=== PATIENT | female | born 1945 | race Caucasian/White ===

== ENCOUNTER 2019-04-15 14:24 | Observation (INO) ==
--- NOTE | 2019-04-15 14:52 | Emergency Department Note ---
Entered by Philippe Martínez acting as a scribe for Delfino Aaron DO History of Present Illness General Chief complaint: Flank Pain Stated complaint: RLQ ABD PAIN R/O DIVERTICULITIS VS APPENDICITIS Time Seen by Provider: 04/15/19 14:36 Source: patient History of Present Illness Provider complaint: Abd pain Onset (ago): day(s) 2 Location: abdomen Pain Consistency: + constant Maximum Pain Intensity: 4 Current Pain Intensity: 4 Quality: + burning and + constant Exacerbated By: + none Treatments prior to arrival: none The patient is a 73 year old female with a hx of arthritis, HTN, asthma, and GERD who presents to the Emergency Room with complaints of abdominal pain that began 2 days ago. The patient states that the pain began as a burning pain that was throughout her entire abdomen. The patient states that she was seen by her PCP prior to arrival and had a CT completed at that time. Currently, she notes that the pain has somewhat subsided rating it as a 4/10. The patient denies being on blood thinners. The patient adds that he last consumed food 1 day ago. Home Medications Home Medications Medication Instructions Recorded Confirmed Type Centrum Silver 1 tab PO QAM 07/19/18 04/15/19 History acetaminophen [Tylenol Extra 1,000 mg PO HS 07/19/18 04/15/19 History Strength] albuterol sulfate [ProAir HFA] 2 puff INHALATION Q4H PRN 07/19/18 04/15/19 History calcium-vitamin D3-vitamin K 1 dose PO BID 07/19/18 04/15/19 History [Viactiv] clobetasol 1 applic TOPICAL 2XWK PRN 07/19/18 04/15/19 History fluticasone propion-salmeterol 1 inh INHALATION Q12H 07/19/18 04/15/19 History [Advair Diskus] losartan 50 mg PO QAM 07/19/18 04/15/19 History montelukast 10 mg PO HS 07/19/18 04/15/19 History pravastatin 20 mg PO HS 07/19/18 04/15/19 History ranitidine HCl [Zantac 75] 75 mg PO BID 07/19/18 04/15/19 History cholecalciferol (vitamin D3) 1,000 unit PO QAM 08/13/18 04/15/19 History [Vitamin D3] melatonin 6 mg PO HS 08/13/18 04/15/19 History aspirin 81 mg PO QAM 04/15/19 04/15/19 History ipratropium bromide 2 spray INTRANASAL TID 04/15/19 04/15/19 History sodium chloride [[place] Nasal] 1 spray INTRANASAL BID 04/15/19 04/15/19 History Allergies Allergy/AdvReac Type Severity Reaction Status Date / Time Quinolones Allergy Mild RASH Verified 04/15/19 15:28 epinephrine AdvReac Intermediate Jittery,disoriented,nausea Verified 04/15/19 15:28 and vomiting amoxicillin AdvReac Mild SEVERE Verified 04/15/19 15:28 DIARRAHEA morphine AdvReac Mild NAUSEA/VOMI Verified 04/15/19 15:28 TING Past Med/Surg History Medical History Asthma GERD (gastroesophageal reflux disease) Hearing deficit Hyperlipidemia Hypertension Surgical History H/O bilateral oophorectomy H/O bladder repair surgery BLADDER SLING History of bilateral tubal ligation History of cholecystectomy History of colonoscopy History of dilatation and curettage History of hysterectomy History of tooth extraction History of total hip arthroplasty LEFT Hx of blepharoplasty both eyes Hx of hernia repair Family History Father Family history of diabetes mellitus Brother Family history of diabetes mellitus Sister Family history of diabetes mellitus Father Family hx of colon cancer Social History Preferred Language: Telugu Communication Ability: Effective Beliefs That Will Affect Care: None Current Living Situation: Alone Feels Safe at Home: Yes Smoking Status: Never smoker Second Hand Exposure: No Hx Alcohol Use: No Hx Substance Use: No Review of Systems See HPI for pertinent positives & negatives. and A total of 10 systems reviewed and were otherwise negative Physical Exam Vital Signs Vital Signs - 24 hr 04/15/19 14:27 04/15/19 15:58 Temperature 36.6 C Temperature Source Oral Sepsis Recent Fever Within 48 Hours No Sepsis New/Unexplained Change in Mental Status No Sepsis Action Taken by Nursing No Action Required Pulse Rate 103 H Pulse Rate [Right Finger] 106 H Respiratory Rate 18 18 Respiratory Effort / Characteristics Non-Labored Respiratory Depth Normal Blood Pressure 134/77 Blood Pressure [Left Arm] 140/80 Blood Pressure Mean 96 Blood Pressure Mean [Left Arm] 100 Pulse Oximetry 97 95 Oxygen Delivery Method Room Air CONSTITUTIONAL/VITAL SIGNS: Reviewed / noted above. GENERAL: Non-toxic in appearance. INTEGUMENTARY: Warm, dry, and [place]. HEAD: Normocephalic. EYES: without scleral icterus or trauma. ENT/OROPHARYNX: clear and moist. LYMPHADENOPATHY/NECK: Is supple without lymphadenopathy or meningismus. RESPIRATORY: Lungs clear and equal. CARDIOVASCULAR: Regular rate and rhythm. GI/ABDOMEN: Soft with tenderness RLQ. No organomegaly or pulsatile mass. No rebound or guarding. Normal bowel sounds. EXTREMITIES: Warm and well perfused. BACK: No CVA tenderness. NEUROLOGICAL: Intact without focal deficits. PSYCHIATRIC: normal affect. MUSCULOSKELETAL: Normally developed with good muscle tone. Course 1439: The patient was evaluated in room A11B. A complete history and physical exam was performed. 1450: I discussed the patient's case with Miguel Angel Allison PA-C Surgery. Administered Medications Lactated Ringer's (Lr) 1,000 mls @ 80 mls/hr IV .[id number] ROSEMARY Stop: 05/15/19 15:29 Last Admin: 04/15/19 15:56 Dose: 80 mls/hr Documented by: [id number] Discontinued Medications Sodium Chloride (Nss 1000ml) 500 mls @ 999 mls/hr IV .Q31M ONE Stop: 04/15/19 15:23 Last Infusion: 04/15/19 15:57 Dose: 0 mls/hr Documented by: [id number] Admin: 04/15/19 15:01 Dose: 999 mls/hr Documented by: [id number] Cefoxitin Sodium 2,000 mg/ (Dextrose) 60 mls @ 100 mls/hr IV NOW STA Stop: 04/15/19 15:54 Last Admin: 04/15/19 15:55 Dose: 100 mls/hr Documented by: [id number] Medical Decision Making Differential Diagnosis Differential diagnosis: Etiologies such as appendicitis, diverticulitis, PUD, biliary pathology, UTI, pancreatitis, obstruction, mesenteric ischemia, aortic pathology, infections, inflammatory bowel disease, renal colic, as well as others were entertained. Medical Records Attestation: I reviewed the patient's medical records. Home Medications Current Medication List: was personally reviewed by me Laboratory Data Attestation: I reviewed the patient's lab results. The white blood cell count was 12. Chemistry panel was unremarkable. Imaging Data Radiologist's Impression: Radiology results as stated below per my review and the radiologist's interpretation: CT SCAN OF THE ABDOMEN AND PELVIS WITH IV CONTRAST CLINICAL HISTORY: Right lower quadrant abdominal pain. COMPARISON STUDY: No priors. TECHNIQUE: Following the IV administration of 93 cc of Optiray 320, CT scan of the abdomen and pelvis is performed from the lung bases to the proximal femora. Images are reviewed in the axial, sagittal, and coronal planes. IV contrast was administered without complication. Oral contrast was utilized. A dose lowering technique was utilized adhering to the principles of ALARA. CT DOSE: 633.14 mGy.cm FINDINGS: Lung bases: The heart is normal in size and without pericardial effusion. The lung bases are clear. Liver: The contrast-enhanced liver is enlarged, measuring 19.7 cm in length. The liver is heterogeneous in attenuation. Nodularity of the hepatic surface contour suggests early change of cirrhosis. There is mild central intrahepatic biliary ductal dilatation. The hepatic veins and portal veins are patent. A 3.2 cm cyst is noted in segment IV. Additional subcentimeter hepatic hypodensities also likely represent cysts but are too small for definitive characterization. Gallbladder: Contracted versus surgically absent. Spleen: Normal in size and attenuation. There is a 10 mm peripherally calcified splenic artery aneurysm seen on image #106. Pancreas: Moderately atrophic and grossly unremarkable. Adrenal glands: Unremarkable. Kidneys: The contrast enhanced kidneys demonstrate cortical atrophy and are without hydronephrosis. The kidneys enhance symmetrically. Nonobstructing renal calculi are seen bilaterally. Scattered subcentimeter cortical hypodensities likely represent cysts but are too small for definitive characterization. Abdominal vasculature: The abdominal aorta is normal in course and caliber. Bowel: The appendix is located within a hernia in the right groin, likely representing a femoral hernia. The appendix is distended, thick-walled, and hyperemic as seen on image #3 and 69. The appendix measures up to 10 mm diameter. There is periappendiceal inflammation and fluid, and the appearance is consistent with acute appendicitis. No rest fluid collection is seen to suggest abscess. Mild wall thickening of the cecum is likely related to adjacent appendicitis. There is mild to moderate colonic diverticulosis without CT evidence of acute diverticulitis. No bowel obstruction is seen. Enteric contrast reaches the colon. Peritoneum: There is no intraperitoneal free air or abdominal ascites. There is a small fat-containing umbilical hernia. A 1.6 cm nodule anterior to the liver on image #101 likely represents a splenule. Lymphadenopathy: Mildly enlarged right inguinal lymph nodes are likely on a reactive basis. No additional enlarged lymph nodes are seen in the abdomen or pelvis. Pelvic viscera: Evaluation of the pelvis is degraded by streak artifact from a left hip arthroplasty. The bladder wall appears circumferentially thickened. Mild pericystic stranding is suggested. The uterus is surgically absent. No adnexal lesion is seen. Skeletal structures: The skeletal structures are osteopenic. No lytic or blastic lesions are seen. A letter arthroplasty is in place. Arthritic change is noted in the right hip. IMPRESSION: 1. Findings are consistent with acute appendicitis. The inflamed appendix is contained within a hernia in the right groin, likely representing a femoral hernia. 2. There is no evidence of abscess or perforation. 3. Wall thickening of the cecum is likely related to adjacent appendicitis. 4. The bladder wall appears mildly thickened and hyperemic. Correlate clinically and with urinalysis for evidence of cystitis. 5. The liver is enlarged and heterogeneous. Mild nodularity of the surface contour suggests early change of cirrhosis. Clinical correlation will be required. 6. There is a 10 mm peripherally calcified splenic artery aneurysm. 7. Bilateral nephrolithiasis. 8. Additional findings as above. Electronically signed by: Philippe Perez M.D. 04/15/2019 2:02 PM Blood Pressure Blood Pressure Findings: Elevated blood pressure Blood Pressure Disposition: elevated BP felt to be situational MDM Narrative This is a 73-year-old female who presents to the ED with a chief complaint of right lower quadrant abdominal pain that started on Monday. The patient had an outpatient work-up including CBC, chemistry panel and a CT scan of the abdomen pelvis. The CT scan reveals again an acute appendicitis without abscess or other abnormality. The patient's white blood cell count was 12.0. Her chemistry panel was unremarkable. She reports a history of hypertension, asthma and takes cholesterol medication. She states she is otherwise healthy. Her physical exam revealed tenderness to the right lower quadrant. She is afebrile here. Her heart rate was 103. I spoke with the surgical service via [facility]. They will see the patient for further inpatient evaluation and care. She was given some IV fluids here she last ate yesterday and had some fluid to drink with a CAT scan today. The patient was given IV cefoxitin by the surgical service. Impression & Plan Acute appendicitis The scribe's documentation has been prepared under my direction and personally reviewed by me in its entirety. I confirm that the note above accurately reflects all work, treatment, procedures, and medical decision making performed by me.
[2019-04-15] MEDS ORDERED: SODIUM CHLORIDE 0.9% 1000ML 500 ML IV ONE (14:53)
[2019-04-15] MEDS ORDERED: cefOXitin 2,000 MG in DEXTROSE 5% 50 ML IV STA (15:19)
--- NOTE | 2019-04-15 15:26 | History & Physical Report ---
Date of Service April 15, 2019 Assessment & Plan (1) Appendicitis: Appendicitis within right femoral hernia. Will plan for laparoscopic appendectomy with possible open appendectomy and possible repairs of femoral and umbilical hernias. History of Present Illness Primary Care Provider: Chiquis Joseph, DO 73 y/o female with lower abdominal pain Saturday night, now localized to RLQ. Saw PCP today, had outpatient CT and referred for appendicitis. Some nausea, no fever or chills. Had previous femoral hernia repairs in 1970s. Had glass of juice this morning between 7-8 AM. Allergies Allergy/AdvReac Type Severity Reaction Status Date / Time Quinolones Allergy Mild RASH Verified 04/15/19 15:28 epinephrine AdvReac Intermediate Jittery,disoriented,nausea Verified 04/15/19 15:28 and vomiting amoxicillin AdvReac Mild SEVERE Verified 04/15/19 15:28 DIARRAHEA morphine AdvReac Mild NAUSEA/VOMI Verified 04/15/19 15:28 TING Home Medications Home Medications Medication Instructions Recorded Confirmed Type Centrum Silver 1 tab PO QAM 07/19/18 02/06/19 History acetaminophen [Tylenol Extra 2 tab PO HS 07/19/18 02/06/19 History Strength] albuterol sulfate [ProAir HFA] 2 puff INHALATION QID PRN 07/19/18 02/06/19 History aspirin [Aspir-Low] 81 mg PO QAM 07/19/18 02/06/19 History calcium-vitamin D3-vitamin K 1 dose PO BID 07/19/18 02/06/19 History [Viactiv] clobetasol 1 applic TOPICAL UD PRN 07/19/18 02/06/19 History fluticasone propion-salmeterol 1 inh INHALATION Q12H 07/19/18 02/06/19 History [Advair Diskus] ipratropium bromide 2 spray INTRANASAL TID 07/19/18 02/06/19 History losartan 50 mg PO QAM 07/19/18 02/06/19 History montelukast 10 mg PO HS 07/19/18 02/06/19 History pravastatin 20 mg PO HS 07/19/18 02/06/19 History ranitidine HCl [Zantac 75] 75 mg PO BID 07/19/18 02/06/19 History sodium chloride [[place] Nasal] 1 spray INTRANASAL BID 07/19/18 02/06/19 History cholecalciferol (vitamin D3) 1,000 unit PO QAM 08/13/18 02/06/19 History [Vitamin D3] melatonin 6 mg PO HS 08/13/18 02/06/19 History Past Med/Surg History Medical History Asthma GERD (gastroesophageal reflux disease) Hearing deficit Hyperlipidemia Hypertension Surgical History H/O bilateral oophorectomy H/O bladder repair surgery BLADDER SLING History of bilateral tubal ligation History of cholecystectomy History of colonoscopy History of dilatation and curettage History of hysterectomy History of tooth extraction History of total hip arthroplasty LEFT Hx of blepharoplasty both eyes Hx of hernia repair Family History Father Family history of diabetes mellitus Brother Family history of diabetes mellitus Sister Family history of diabetes mellitus Father Family hx of colon cancer Social History Preferred Language: Samoan Communication Ability: Effective Beliefs That Will Affect Care: None Current Living Situation: Alone Feels Safe at Home: Yes Smoking Status: Never smoker Second Hand Exposure: No Hx Alcohol Use: No Hx Substance Use: No Review of Systems Constitutional: no fever and no chills Respiratory: + cough (chorinc sinus drainage) Cardiovascular: no chest pain and no chest pain with activity Gastrointestinal: + abdominal pain and + nausea; no change in bowel habits Physical Exam Constitutional: WD/WN, vitals as above Respiratory: normal respiratory effort, lungs clear to auscultation Cardiovascular: RRR, no murmur, no edema Gastrointestinal (Abdomen): Inspection/Auscultation: abdomen not distended Percussion/Palpation: + abdomen tender (right femoral hernia) and + hernia (right femoral) Skin: no rashes, warm and dry Results & Data Vital Signs (Past 12 Hours) Vital Signs Temp Pulse Resp BP Pulse Ox 04/15/19 14:27 36.6 C 103 H 18 134/77 97 Diagnostic Findings IMPRESSION: 1. Findings are consistent with acute appendicitis. The inflamed appendix is contained within a hernia in the right groin, likely representing a femoral hernia. 2. There is no evidence of abscess or perforation. 3. Wall thickening of the cecum is likely related to adjacent appendicitis. 4. The bladder wall appears mildly thickened and hyperemic. Correlate clinically and with urinalysis for evidence of cystitis. 5. The liver is enlarged and heterogeneous. Mild nodularity of the surface contour suggests early change of cirrhosis. Clinical correlation will be required. 6. There is a 10 mm peripherally calcified splenic artery aneurysm. 7. Bilateral nephrolithiasis. 8. Additional findings as above. Electronically signed by: Philippe Perez M.D. 04/15/2019 2:02 PM Supervising Physician Co-Signing Physician Notes Patient seen and examined, labs and imaging reviewed, agree with above. 73-year-old female with 48 hours of abdominal pain migrating to the right lower quadrant. She also has a history of a prior right femoral hernia repair. CT done as an outpatient showed an acute appendicitis and a right femoral hernia. White blood cell count elevated, no evidence of perforation. Tender to palpation in the right lower quadrant and right groin. Plan for laparoscopic appendectomy, possible open, possible right inguinal/femoral hernia repair, possible umbilical hernia repair. The risk of the procedure were discussed to include but not limited to bleeding, infection, recurrence of the hernia, damage to surrounding structures, need for future or more extensive surgery, abscess, and the risks of anesthesia We did a long discussion and her goal is to treat the appendicitis primarily. We may primarily repair the femoral hernia or put a piece of biologic mesh and if we find this necessary. If not we will leave it alone and repaired at a future date. Antibiotic preop Plan of care discussed with the patient and her daughter, all questions answered, the patient expressed understanding agrees the plan of care as stated.
[2019-04-15] MEDS ORDERED: LACTATED RINGER'S 1,000 ML IV SCH ×2 (15:30→19:27)
[2019-04-15] MEDS ORDERED: fentaNYL citrate 100 MCG/2 ML VIAL ONE (16:27)
--- NOTE | 2019-04-15 16:42 | Anesthesiology Consultation ---
Date of Service April 15, 2019 Assessment & Plan (1) Encounter for pre-operative examination: Chart Review Chart Review: Acceptable Risk for Surgery Consults Requested none ASA [id number] Proposed Anesthesia Risk / Benefits Reviewed With: PT / POA / Parent / Guardian, Accepts Plan and Informed Consent Obtained History Surgery Operation Date: 04/15/19 15:10 Proposed Procedures p Laparoscopic Appendectomy - Jared Martino DO, FACS s Possible Repair Femoral Hernia - Jared Martino DO, FACS Allergies Allergy/AdvReac Type Severity Reaction Status Date / Time Quinolones Allergy Mild RASH Verified 04/15/19 15:28 epinephrine AdvReac Intermediate Jittery,disoriented,nausea Verified 04/15/19 15:28 and vomiting amoxicillin AdvReac Mild SEVERE Verified 04/15/19 15:28 DIARRAHEA morphine AdvReac Mild NAUSEA/VOMI Verified 04/15/19 15:28 TING Medications Home Medications Medication Instructions Recorded Confirmed Last Taken Centrum Silver 1 tab PO QAM 07/19/18 04/15/19 04/14/19 acetaminophen [Tylenol Extra 1,000 mg PO HS 07/19/18 04/15/19 04/14/19 Strength] albuterol sulfate [ProAir HFA] 2 puff INHALATION Q4H PRN 07/19/18 04/15/19 02/06/19 calcium-vitamin D3-vitamin K 1 dose PO BID 07/19/18 04/15/19 04/14/19 [Viactiv] AM DOSE clobetasol 1 applic TOPICAL 2XWK PRN 07/19/18 04/15/19 02/06/19 fluticasone propion-salmeterol 1 inh INHALATION Q12H 07/19/18 04/15/19 04/15/19 [Advair Diskus] AM DOSE losartan 50 mg PO QAM 07/19/18 04/15/19 04/15/19 montelukast 10 mg PO HS 07/19/18 04/15/19 04/14/19 pravastatin 20 mg PO HS 07/19/18 04/15/19 04/14/19 ranitidine HCl [Zantac 75] 75 mg PO BID 07/19/18 04/15/19 04/14/19 cholecalciferol (vitamin D3) 1,000 unit PO QAM 08/13/18 04/15/1904/14/19 [Vitamin D3] melatonin 6 mg PO HS 08/13/18 04/15/19 02/06/19 aspirin 81 mg PO QAM 04/15/19 04/15/19 04/14/19 ipratropium bromide 2 spray INTRANASAL TID 04/15/19 04/15/19 Unknown sodium chloride [[place] Nasal] 1 spray INTRANASAL BID 04/15/19 04/15/19 04/15/19 AM DOSE Active Medications Generic Name Dose Route Start Last Admin Trade Name Martha PRN Reason Stop Dose Admin Lactated Ringer's 1,000 mls @ 80 mls/hr 04/15/19 15:30 04/15/19 15:56 Lr IV 05/15/19 15:29 80 mls/hr .[id number] ROSEMARY Administration NPO Date Last Intake of Fluids: 04/15/19 Time Last Intake of Fluids: 13:30 Last Intake of Fluids Comment: PO contrast in the ED Date Last Intake of Solids: 04/14/19 Time Last Intake of Solids: 08:00 Past Medical History Medical History Asthma GERD (gastroesophageal reflux disease) Hearing deficit Hyperlipidemia Hypertension Exercise / Class Metabolic Activity II 4-5 Yardwork/Stairs/Walk up hill Past Family History Family History Father Family history of diabetes mellitus Brother Family history of diabetes mellitus Sister Family history of diabetes mellitus Father Family hx of colon cancer Past Surgical History Surgical History H/O bilateral oophorectomy H/O bladder repair surgery BLADDER SLING History of bilateral tubal ligation History of cholecystectomy History of colonoscopy History of dilatation and curettage History of hysterectomy History of tooth extraction History of total hip arthroplasty LEFT Hx of blepharoplasty both eyes Hx of hernia repair Past Anesthesia History No Hx of Anesthesia Complications and No Family Hx of Anesthesia Complications History of PONV No Hx of PONV and No Hx of Motion Sickness Social History Smoking Status: Never smoker Hx Alcohol Use: No Hx Substance Use: No substance use type: does not use Physical Exam Vital Signs Last Vital Signs Temp 98.4 F 04/15/19 16:30 Pulse 105 H 04/15/19 16:30 Resp 20 04/15/19 16:30 BP 137/88 04/15/19 16:30 Pulse Ox 96 04/15/19 16:30 ENMT Mouth: no dentition abnormality Thyromental Distance: > or= 3.5 Finger Breadths Mallampati Class: II Neck normal visual inspection Respiratory normal respiratory effort Auscultation: lungs clear to auscultation bilaterally Cardiovascular Rate/Rhythm: regular rhythm and + tachycardic Testing Electrocardiogram Date: 02/06/19 Normal sinus rhythm, rate 87 bpm Minimal voltage criteria for LVH, may be normal variant Borderline ECG When compared with ECG of 03-MAR-2016 13:19, ST no longer depressed in Inferior leads Nonspecific T wave abnormality no longer evident in Lateral leads Confirmed by Roman Gallegos ([id number]) on 02/08/2019 4:20:56 AM Chest X-Ray Date: 02/06/19 IMPRESSION: 1. No acute cardiopulmonary findings. 2. Left basilar opacity which favors atelectasis.
[2019-04-15] MEDS ORDERED: DEXAMETHASONE SOD INJ 4 MG/ML VIAL ONE (17:19)
[2019-04-15] MEDS ORDERED: SUCCINYLCHOLINE CHLORIDE 20 MG/ML 10 ML VIAL ONE (17:20)
[2019-04-15] MEDS ORDERED: ONDANSETRON INJ 2 MG/ML 2 ML VIAL ONE (17:20)
[2019-04-15] MEDS ORDERED: PROPOFOL IV EMULSION 10 MG/ML 20 ML VIAL IV ONE (17:20)
[2019-04-15] MEDS ORDERED: ROCURONIUM BROMIDE 10 MG/ML 5 ML VIAL ONE (17:20)
[2019-04-15] MEDS ORDERED: LIDOCAINE HCL 2% 2 ML VIAL/AMP(20MG/ML) INFIL ONE (17:20)
[2019-04-15] MEDS ORDERED: PHENYLEPHRINE 100MCG/ML 5ML SYR ONE (17:23)
[2019-04-15] MEDS ORDERED: NEOSTIGMINE METHYLSULFATE 5 MG/5 ML SYR ONE (17:36)
[2019-04-15] MEDS ORDERED: GLYCOPYRROLATE 0.2 MG/ML VIAL ONE (17:36)
[2019-04-15] MEDS ORDERED: ePHEDrine sulfate 50 MG/ML AMP IV PRN (17:55)
[2019-04-15] MEDS ORDERED: fentaNYL citrate 100 MCG/2 ML VIAL IV PRN (17:55)
[2019-04-15] MEDS ORDERED: ONDANSETRON INJ 2 MG/ML 2 ML VIAL IV PRN ×2 (17:55→19:27)
[2019-04-15] MEDS ORDERED: ATROPINE SULFATE 0.1 MG/ML 10ML SYR IV PRN (17:55)
[2019-04-15] MEDS ORDERED: BUPIVACAINE LIPOSOME 1.3% 266 MG/20 ML VIAL ONE (17:59)
[2019-04-15] MEDS ORDERED: BUPIVACAINE 0.5 % 5 MG/1 ML MPF 30ML VIAL INFIL ONE (18:05)
--- NOTE | 2019-04-15 18:32 | Operative Report ---
Post Operative Report Pre & Post Diagnosis Operation Date: 04/15/19 15:10 Pre-Op Diagnosis: Appendicitis within right femoral hernia Post-Op Diagnosis: Appendicitis within incarcerated recurrent right femoral hernia Procedure Operation Date: 04/15/19 15:10 Actual Procedures p Laparoscopic Appendectomy, Repair of recurrent incarcerated Right Femoral Hernia (Not Applicable) - Jared Martino DO, FACS Surgeon Jared Martino DO, FACS Outside Event Sales Specialist Flakito Chavez Estimated Blood Loss 6 Findings Consistent with Post-Op Diagnosis Acute appendicitis with an incarcerated femoral hernia. Began laparoscopically, appendix protruding into femoral hernia, unable to reduce. Appendix was stapled at its base and the harmonic was used to divide the mesoappendix. Attempted again to reduce laparoscopically, and the appendix tore this was placed in Endo Catch bag and removed the umbilical port. Then performed for inguinal right groin incision and the incarcerated femoral hernia sac was identified. This was opened and the remainder of the appendix was removed. High ligation of the hernia sac was performed. The femoral defect was then closed with interrupted simple 0 PDS sutures. Grecia's fascia was closed with running 2-0 Vicryl suture. Apolinar drain was left in the incision was closed with teressa. Reentered laparoscopically and there is good hemostasis in the right lower quadrant. The femoral defect was closed. Exparel injected in right groin. Specimens Appendix Hernia sac Drains Apolinar and right groin incision Anesthesia Type General Complications none Disposition Accompanied Patient To Recovery: No Disposition: Recovery Room Indications 73-year-old female presented to the emergency department with several days of right lower quadrant abdominal pain. She had a history of a prior right femoral hernia repair. She had a CT scan performed as an outpatient that showed appendicitis with an incarcerated right femoral hernia. Plan for laparoscopic appendectomy, possible open, possible right femoral hernia repair, possible umbilical hernia repair. The risks of the procedure were discussed, all questions were answered, and the patient agreed to proceed with surgery as planned. Description of Procedure The patient was properly identified, consented, and taken to the operating room where she was placed in the supine position. General endotracheal anesthesia was induced. SCDs and a safety belt were placed. Preoperative antibiotics were administered. A Jimenez catheter was placed. The patient's abdomen was prepped and draped in the standard sterile fashion. Surgical timeout was performed and all parties were in agreement that this was the correct patient and procedure to be performed and we continued as planned. A curvilinear infraumbilical incision was made with electrocautery and deepened down to the fascia with blunt dissection. The base of the umbilicus was grasped with a Mal and elevated towards the ceiling. An incision was made in the midline fascia with a knife and entry into the peritoneum was confirmed. Stay suture of 0 Vicryl was placed and a Dior trocar was inserted. The abdomen was insufflated with carbon dioxide which the patient tolerated without incident. The laparoscope was inserted and no damage from initial trocar placement was noted. The remainder the abdomen was inspected and there is clearly the appendix herniating through right femoral defect. No other gross abnormalities were noted within the 4 quadrants the abdomen. 5 mm ports were then placed in the left lower quadrant with care not to damage the epigastric vessels, and in the suprapubic midline with care not to damage the bladder. The patient was placed in Trendelenburg position and rotated towards the left. The small bowel was swept away from the right lower quadrant. We attempted to reduce the appendix but were unsuccessful. The cecum was grasped with an atraumatic grasper. There was no fluid in the pelvis. A window was created between the base of the appendix and the mesoappendix. A mccain loaded endoscopic stapler was then used to divide the appendix at its base. The harmonic scalpel was then used to divide the mesoappendix. Hemostasis was good. I again attempted to reduce the appendix from the hernia at this point the appendix and mesoappendix tore. The proximal appendix was placed in an Endo Catch bag and removed through the umbilical port site. Incision was then made in the infra inguinal right groin. This was dissected along the inguinal ligament we were able to palpate hernia sac. The hernia sac was opened and the remainder of the appendix was identified and removed. This was passed off the table as specimen. There were no other intra-abdominal contents within the hernia sac. Then twisted the hernia sac and a high ligation was performed with a 2-0 Vicryl suture. The femoral defect was then closed with interrupted simple 0 PDS sutures x3. The wound was irrigated and hemostasis confirmed. Grecia's fascia was then closed with a running 2-0 Vicryl suture. A [place] drain was placed in the incision and sewn into place with a 3-0 nylon suture. Skin was then closed with interrupted 3 oh deep dermal sutures followed by teressa. At this point we reentered laparoscopically and the femoral defect was closed. the right lower quadrant and pelvis was irrigated and hemostasis was found to be good. 5 mm trochars were removed under direct visualization and the abdomen was allowed to collapse. The umbilical port site fascia was closed with 0 Vicryl suture. The wound was irrigated, and the skin of all ports was closed with teressa. Sterile dressings were placed over the wounds. The patient was extubated in the operating room and taken to the PACU where she recovered without apparent incident. All sponge, instrument and needle counts were correct at the conclusion of the procedure. The patient tolerated the procedure well. The physician's certified nursing assistant was present and scrubbed for the entire to the case. He was critical in positioning the patient, prepping and draping, retraction and exposure, driving the laparoscope, removal of the appendix, and repair of the femoral hernia, closure the incisions, and placement of the dressings. I attest to the content of the Intraoperative Record and any orders documented therein. Any exceptions are noted below.
--- NOTE | 2019-04-15 19:06 | Anesthesiology Progress Note ---
Date of Service April 15, 2019 Anesthesia Post Procedure Vital Signs Vital Signs: Temp Pulse Pulse Pulse Resp BP BP 04/15/19 19:00 84 21 143/72 H 04/15/19 18:50 81 16 140/75 04/15/19 18:40 86 16 139/70 04/15/19 18:31 99.5 F 83 21 131/72 04/15/19 16:30 98.4 F 105 H 20 137/88 04/15/19 15:58 106 H 18 140/80 04/15/19 14:27 97.9 F 103 H 18 134/77 Pulse Ox 04/15/19 19:00 97 04/15/19 18:50 100 04/15/19 18:40 100 04/15/19 18:31 100 04/15/19 16:30 96 04/15/19 15:58 95 04/15/19 14:27 97 Pain Intensity Abdomen: Pain Intensity: 0 Transfer of Care Handoff Completed per policy Notes Mental Status: alert / awake / arousable and participated in evaluation Patient Amnestic to Procedure: Yes Nausea / Vomiting: adequately controlled Pain: adequately controlled Airway Patency, RR, SpO2: stable & adequate BP & HR: stable & adequate Hydration State: stable & adequate Anesthetic Complications: no major complications apparent and Pt Satisfied with anesthetic care
[2019-04-15] MEDS ORDERED: MoRPHine SULFATE 2 MG/ML CARP IV PRN (19:27)
[2019-04-15] MEDS ORDERED: MoRPHine SULFATE 4 MG/ML 1 ML CARP\\VIAL IV PRN (19:27)
[2019-04-15] MEDS ORDERED: ALBUTEROL HFA 8 GM INHALER INH PRN (19:45)
[2019-04-15] MEDS ORDERED: ACETAMINOPHEN 1,000 MG/100 ML VIAL IV PRN (20:45)
[2019-04-15] MEDS ORDERED: KETOROLAC TROMETHAMINE 15 MG/ML VIAL IV PRN (20:46)
[2019-04-15] MEDS: MONTELUKAST SODIUM 10 MG TABLET PO SCH (21:03)
[2019-04-15] MEDS: cefOXitin 2,000 MG in DEXTROSE 5% 50 ML IV SCH (21:03)
[2019-04-15] MEDS: SODIUM CHLORIDE 0.65% NA SOLN 45 ML (OCEAN) NAE SCH (21:03)
[2019-04-15] MEDS: FLUTICASONE/SALMETEROL 250/50 (ADVAIR) 14 PUFF/1 INHALER INH SCH (21:04)
[2019-04-16] MEDS: cefOXitin 2,000 MG in DEXTROSE 5% 50 ML IV SCH ×3 (03:08→16:15)
--- NOTE | 2019-04-16 08:15 | Anesthesiology Progress Note ---
Date of Service April 16, 2019 Anesthesia Post Procedure Vital Signs Vital Signs: Temp Pulse Pulse Pulse Resp BP BP 04/16/19 07:25 36.9 C 68 17 130/84 04/16/19 04:24 36.8 C 74 16 123/68 04/15/19 22:46 36.7 C 97 H 18 118/67 04/15/19 21:32 37.2 C 96 H 18 124/72 04/15/19 20:35 37.2 C 94 H 18 127/74 04/15/19 19:57 37.1 C 82 20 131/74 04/15/19 19:30 37.1 C 85 16 127/73 04/15/19 19:15 84 17 132/76 04/15/19 19:10 37.0 C 82 16 135/72 04/15/19 19:00 84 21 143/72 H 04/15/19 18:50 81 16 140/75 04/15/19 18:40 86 16 139/70 04/15/19 18:31 37.5 C 83 21 131/72 04/15/19 16:30 36.9 C 105 H 20 137/88 04/15/19 15:58 106 H 18 140/80 04/15/19 14:27 36.6 C 103 H 18 134/77 Pulse Ox 04/16/19 07:25 93 04/16/19 04:24 95 04/15/19 22:46 92 04/15/19 21:32 94 04/15/19 20:35 94 04/15/19 19:57 95 04/15/19 19:30 95 04/15/19 19:15 97 04/15/19 19:10 99 04/15/19 19:00 97 04/15/19 18:50 100 04/15/19 18:40 100 04/15/19 18:31 100 04/15/19 16:30 96 04/15/19 15:58 95 04/15/19 14:27 97 Pain Intensity Abdomen: Pain Intensity: 3 Notes Mental Status: alert / awake / arousable and participated in evaluation Patient Amnestic to Procedure: Yes Nausea / Vomiting: adequately controlled Pain: adequately controlled Airway Patency, RR, SpO2: stable & adequate BP & HR: stable & adequate Hydration State: stable & adequate Anesthetic Complications: no major complications apparent and Pt Satisfied with anesthetic care
[2019-04-16 09:02] LABS: Basophils # (auto) 0.01 K/uL (0-0.2); Basophils % (auto) 0.1 %; Hematocrit (blood only) 37.6 % (37-47); Hemoglobin 12.4 g/dL (12.0-16.0); Immature Granulocytes # (auto) 0.02 K/uL (0.00-0.02); Immature Granulocytes % (auto) 0.2 %; Lymphocytes # (auto) 0.76 K/uL (1.2-3.4); Lymphocytes % (auto) 6.4 %; Mean Corpuscular Volume 96.9 fL (80-100); Mean Platelet Volume 9.7 fL (7.4-10.4); Monocytes # (auto) 0.78 K/uL (0.11-0.59); Monocytes % (auto) 6.6 %; Neutrophils # (auto) 10.25 K/uL (1.4-6.5); Neutrophils % (auto) 86.7 %; Platelet Count 251 K/uL (130-400); RDW Coefficient of Variation 14.3 % (11.5-14.5); RDW Standard Deviation 50.7 fL (36.4-46.3); Red Blood Count 3.88 M/uL (4.2-5.4); White Blood Count 11.82 K/uL (4.8-10.8)
[2019-04-16] MEDS: FLUTICASONE/SALMETEROL 250/50 (ADVAIR) 14 PUFF/1 INHALER INH SCH ×2 (09:02→20:46)
[2019-04-16] MEDS: ASPIRIN 81 MG ECTAB PO SCH (09:02)
[2019-04-16] MEDS: LOSARTAN POTASSIUM 50 MG TAB PO SCH (09:03)
[2019-04-16] MEDS: SODIUM CHLORIDE 0.65% NA SOLN 45 ML (OCEAN) NAE SCH ×2 (09:04→20:46)
--- NOTE | 2019-04-16 09:39 | Surgery Progress Note ---
Date of Service April 16, 2019 Assessment & Plan (1) Acute appendicitis: POD 1 lap appy, femoral hernia repair advance diet ambulate Supervising Physician Co-Signing Physician Notes Patient S&E, agree with above. POD#1 lap appy and open incarcerated femoral hernia repair. Doing well, tolerated liquids. Exam benign. Advance diet, ambulate, likely d/c tomorrow. Subjective no complaints, minimal pain Physical Exam Gastrointestinal (Abdomen): Inspection/Auscultation: + abdominal surgical incision (minimal veronica drainage) Percussion/Palpation: abdomen soft Results & Data Vital Signs (Past 12 Hours) Vital Signs Temp Pulse Resp BP Pulse Ox 04/16/19 07:25 36.9 C 68 17 130/84 93 04/16/19 04:24 36.8 C 74 16 123/68 95 04/15/19 22:46 36.7 C 97 H 18 118/67 92 (1) Acute appendicitis Acute appendicitis type: with localized peritonitis Appendicitis abscess presence: without abscess Appendicitis gangrene presence: without gangrene Appendicitis perforation presence: without perforation Qualified Code(s): K35.30 - Acute appendicitis with localized peritonitis, without perforation or gangrene
[2019-04-16 09:54] LABS: BUN Creatinine Ratio 10.4 (10-20); Blood Urea Nitrogen 9 mg/dl (7-18); Calcium 8.2 mg/dl (8.5-10.1); Carbon Dioxide 27 mmol/L (21-32); Chloride 107 mmol/L (98-107); Est GFR (African American) 77.7; Glucose 117 mg/dl (70-99); Potassium 3.8 mmol/L (3.5-5.1); Sodium 140 mmol/L (136-145)
[2019-04-16] MEDS: MONTELUKAST SODIUM 10 MG TABLET PO SCH (20:46)
[2019-04-17] MEDS: ACETAMINOPHEN 325 MG TAB PO PRN ×2 (04:23→12:32)
[2019-04-17] MEDS ORDERED: TRAMADOL HCL 50 MG TABLET PO PRN (07:07)
[2019-04-17] MEDS: FLUTICASONE/SALMETEROL 250/50 (ADVAIR) 14 PUFF/1 INHALER INH SCH (09:32)
[2019-04-17] MEDS: SODIUM CHLORIDE 0.65% NA SOLN 45 ML (OCEAN) NAE SCH (09:32)
[2019-04-17] MEDS: ASPIRIN 81 MG ECTAB PO SCH (09:32)
[2019-04-17] MEDS: LOSARTAN POTASSIUM 50 MG TAB PO SCH (09:32)
--- NOTE | 2019-04-17 10:23 | Surgery Progress Note ---
Date of Service April 17, 2019 Assessment & Plan (1) Appendicitis: POD#2, doing well d/c to home follow up early next week for veronica removal activity restrictions and wound care instructions given return precautions given Present on Admission?: Yes (2) Incarcerated femoral hernia: Subjective POD#2 lap appendectomy and femoral hernia repair. Doing well, pain controlled with tylenol, tolerated reg diet this morning. Ambulating. Physical Exam Constitutional: WD/WN, vitals as above Gastrointestinal (Abdomen): normal bowel sounds, soft, nontender, no hepatosplenomegaly incisions with dressings in place, c/d/i Results & Data Vital Signs (Past 12 Hours) Vital Signs Temp Pulse Pulse Resp BP Pulse Ox 04/17/19 07:35 36.6 C 76 18 124/80 98 04/16/19 23:27 36.6 C 87 14 121/72 94
--- NOTE | 2019-04-22 10:03 | Discharge Summary ---
Date of Service April 22, 2019 Admission HPI Per Admitting Provider 73 y/o female with lower abdominal pain day night, now localized to RLQ. Saw PCP today, had outpatient CT and referred for appendicitis. Some nausea, no fever or chills. Had previous femoral hernia repairs in 1970s. Had glass of juice this morning between 7-8 AM. Principal Diagnosis 1. Acute appendicitis 2. Right femoral hernia Discharge Data Allergies Allergy/AdvReac Type Severity Reaction Status Date / Time Quinolones Allergy Mild RASH Verified 04/15/19 15:28 epinephrine AdvReac Intermediate Jittery,disoriented,nausea Verified 04/15/19 15:28 and vomiting amoxicillin AdvReac Mild SEVERE Verified 04/15/19 15:28 DIARRAHEA morphine AdvReac Mild NAUSEA/VOMI Verified 04/15/19 15:28 TING Consultations 04/15/19 15:54 ED Decision to Admit Stat Procedures Performed Operation Date: 04/15/19 15:10 Actual Procedures p Laparoscopic Appendectomy,(Not Applicable) - Jared Martino DO, FACS s Repair of Incarcerated Right Femoral Hernia (Not Applicable) - Jared Martino DO, FACS Hospital Course (1) Acute appendicitis: 73 y/o female had outpatient CT for RLQ pain for several days. She had acute appendicitis which was incarcerated in right femoral hernia. She was taken to the OR for laparoscopy, the base of the appendix was stapled but we were not able to deliver it out of the hernia. A groin incision was made and the appendix removed and femoral hernia repaired. She was transferred to the surgical floor f or postoperative care. She was able to slowly increase activity and by day two was more mobile, was tolerating diet and oral analgesics. [place] drain was removed from the groin incision. She was stable for discharge. Total Time Total Time Spent Total Time Spent (In Minutes): 15 Discharge Plan Discharge Items Patient Disposition: Home - Self-Care Reason For Visit: APPENDICITIS Discharge Diagnosis: appendectomy, femoral hernia repair Discharge Goals: Decrease discomfort Activity: Per 'Additional Instructions' section Lifting: No more than 10 pounds Bathing Comment: ok to shower Non-emergency contact: Surgeon Call non-emergency contact if: you have any medication questions, your pain is not controlled, you have a fever, your temperature is above 101.5, your wound has increased redness and your wound has increased drainage Follow-up/Referrals: Jared Martino DO, FACS [Physician] - (Call to make an appt in 7-10 days) Chiquis Joseph DO [Primary Care Provider] - Diet: Regular Addtl Provider Instructions: Prescriptions: New tramadol [Ultram] 50 mg tablet 50 - 100 mg PO Q4H PRN (Reason: pain) Qty: 15 RF: 0 Continued losartan 50 mg Tablet 50 mg PO QAM RF: 0 fluticasone propion-salmeterol [Advair Diskus] 250-50 mcg/dose Blister With Device 1 inh INHALATION Q12H RF: 0 acetaminophen [Tylenol Extra Strength] 500 mg Tablet 1,000 mg PO HS RF: 0 ranitidine HCl [Zantac 75] 75 mg Tablet 75 mg PO BID RF: 0 montelukast 10 mg Tablet 10 mg PO HS RF: 0 pravastatin 20 mg Tablet 20 mg PO HS RF: 0 clobetasol 0.05 % Ointment 1 applic TOPICAL 2XWK PRN (Reason: Skin Irritation) RF: 0 albuterol sulfate [ProAir HFA] 90 mcg/actuation Hfa Aerosol Inhaler 2 puff INHALATION Q4H PRN (Reason: Cough or Wheezing) RF: 0 Centrum Silver 0.4-300-250 mg-mcg-mcg Tablet 1 tab PO QAM RF: 0 calcium-vitamin D3-vitamin K [Viactiv] 500-500-40 mg-unit-mcg Tablet,Chewable 1 dose PO BID RF: 0 cholecalciferol (vitamin D3) [Vitamin D3] 1,000 unit Tablet 1,000 unit PO QAM RF: 0 melatonin 3 mg Tablet 6 mg PO HS RF: 0 aspirin 81 mg Tablet,Chewable 81 mg PO QAM RF: 0 ipratropium bromide 0.03 % spray,non-aerosol 2 spray intranasal TID RF: 0 sodium chloride [[place] Nasal] 0.65 % Aerosol,[place] 1 spray INTRANASAL BID RF: 0 Stand-Alone Forms: [facility] Discharge Orders: Discharge Order (Routine); Ordered 04/17/19 Ordered By: Jared Martino Admission Data Admit Date/Time: 04/15/19 18:27 Attending Provider: Jared Martino Admit Provider: Jared Martino Primary Care Provider: Chiquis Joseph Other Providers: Jared Martino Service: Surgical Services Other Interventions: Discharge Summary Assessment (RN) Last Done: 04/17/19 12:14 DC Date/Time DO NOT enter until pt leaves facility: 04/17/19 16:35
== END 2019-04-17 16:35 | disposition home or self-care (01) ==
LOC: ED 14:24 → 3W 14:24
DX: Z79.899 Other long term (current) drug therapy; Z88.5 Allergy status to narcotic agent; J45.909 Unspecified asthma, uncomplicated; E78.5 Hyperlipidemia, unspecified; I10 Essential (primary) hypertension; K21.9 Gastro-esophageal reflux disease without esophagitis; K35.80 Unspecified acute appendicitis; K41.31 Unilateral femoral hernia, with obstruction, without gangrene, recurrent; Z79.82 Long term (current) use of aspirin; Z88.1 Allergy status to other antibiotic agents

== ENCOUNTER 2023-02-10 08:05 | Inpatient (IN) ==
--- NOTE | 2023-02-10 08:08 | Emergency Department Note ---
Impression & Plan Pancreatitis, Abdominal pain, Nausea ED Provider Note NAME: TIM AWAD AGE: 77 SEX: F : 1945 ARRIVES VIA: Ambulance INFORMANT: Patient, ED PROVIDER(S): Pino Avila MD CHIEF COMPLAINT: Abdominal pain MEDICAL DECISION MAKING: Patient presents due to concern for epigastric pain. IV was established blood work was obtained patient was ordered IV fluids and antiemetics. CT of the abdomen pelvis ordered. The patient did receive IV Zofran. Blood work shows a normal white count hemoglobin and platelet count. The patient's kidney function is unremarkable with normal electrolytes. LFTs and lipase normal. CT of the abdomen pelvis that showed concern for pancreatitis but without any obvious abscess. Likely reactive adjacent to the duodenum although could also be associated duodenitis. Given the patient's pancreatitis I did speak with the on-call hospitalist service YARELIS Bates and the patient was admitted by Dr. Odonnell Prior /Outside records reviewed: I did review an EGD completed by Dr. Ji in March 2022 which showed the patient had normal esophagus and stomach as well as duodenum. She was recommended to continue pantoprazole. Differential diagnosis: Appendicitis, ovarian cyst, ovarian torsion, ectopic , TOA, PID, infections, diverticulitis, UTI, obstruction, mesenteric ischemia, aortic pathology, inflammatory bowel disease, renal colic, PUD, pancreatitis, biliary pathology, hernia, volvulus, constipation, as well as other pathologies. Diagnostics, as interpreted by me: ECG: Normal sinus rhythm, rate of 97, normal intervals, normal axis no ST elevations. Cardiac monitoring: An order was placed for continuous cardiac monitoring. The monitor shows a rate of 88 with sinus rhythm. Patient was placed on pulse oximetry Medical decision rules: none Imaging studies: See below HPI: Patient presents due to concern for abdominal pain. Patient states that she initially began having abdominal pain that she describes as epigastric but a 3 beginning yesterday evening with decreased appetite. The patient did drink half a cup of coffee and some toast this morning as she went to her car to go to [facility] treatment as the patient has been receiving amikacin for non-TB Mycobacterium the patient did develop worsening discomfort that was sharp in nature in the epigastrium. Patient states that this is since improved. The patient does have nausea. The patient did not take any for pain prior to arrival. Nothing was given by EMS. Patient denies any diarrhea. The patient did have a recent bowel movement nonbloody. The patient denies any falls or trauma. Patient has been getting the amikacin Monday beginning at the end of December. The patient states that she has had a prior appendectomy cholecystectomy as well as hysterectomy. The patient did take some of her morning medications but not all of them. PAST MEDICAL HISTORY: See Below PAST SURGICAL HISTORY: See Below SOCIAL HISTORY: See Below HOME MEDICATIONS: See Below ALLERGIES: See Below VITALS: See Below PHYSICAL EXAMINATION: GENERAL: NAD, non-toxic. Hard of hearing, wearing glasses. EYE EXAM: Normal conjunctiva. PERRL, no anisocoria and EOM's grossly intact w/o pain. NECK: Supple, no nuchal rigidity, no adenopathy, non-tender. No signs of meningismus. FROM of the neck with good chin to chest and neck extension. No stridor. LUNGS: Clear to auscultation. Normal chest wall mechanics. HEART: NSR, no MRG. ABDOMEN: Abdomen soft, epigastric pain, no lower abdominal pain, no right upper quadrant left upper quadrant pain, no masses, no rebound or guarding. BACK: No CVA TTP. SKIN: No rashes and no bruising. UPPER EXTREMITIES: Upper extremities are grossly normal. LOWER EXTREMITIES: Grossly normal, no edema. NEURO EXAM: A&O x3, cranial nerves II-XII grossly intact, normal speech, moves all 4 extremities. Past Med/Surg History Medical History Asthma HAS NOT USED RESCUE INHALER RECENTLY Fungal infection of lung GERD (gastroesophageal reflux disease) Hearing deficit History of depression Hyperlipidemia Hypertension Surgical History H/O bilateral oophorectomy H/O bladder repair surgery BLADDER SLING History of bilateral tubal ligation History of bronchoscopy History of cholecystectomy History of colonoscopy History of dilatation and curettage History of esophagogastroduodenoscopy (EGD) History of hysterectomy History of tooth extraction History of total hip arthroplasty LEFT Hx of blepharoplasty BILAT. Hx of hernia repair S/P appendectomy (04/15/19) Laparoscopic Appendectomy, Repair of recurrent incarcerated Right Femoral Hernia 04/15/19 Dr. Martino S/P cataract surgery RT/LEFT Family History Father Family history of diabetes mellitus Colorectal cancer Hypertension Brother Family history of diabetes mellitus Heart disease Sister Family history of diabetes mellitus Hypertension Father Family hx of colon cancer Heart disease Cancer Other No family history of adverse response to anesthesia Social History Smoking Status: Never smoker Second Hand Exposure: No; Do You Dip or Chew Tobacco: No; Hx Alcohol Use: No Hx Substance Use: No Preferred Language: Luxembourgish Communication Ability: Effective Manager Income Tax Required: No Beliefs That Will Affect Care: None marital status: / Current Living Situation: Alone Feels Safe at Home: Yes Assistive Devices: Glasses and Hearing Aid - Bilateral Allergies Allergies Allergy/AdvReac Type Severity Reaction Status Date / Time Quinolones Allergy Mild RASH Verified 02/10/23 11:18 epinephrine AdvReac Intermediate Jittery,disoriented,nausea Verified 02/10/23 11:18 and vomiting amoxicillin AdvReac Mild Diarrhea Verified 02/10/23 11:18 morphine AdvReac Mild NAUSEA/VOMI Verified 02/10/23 11:18 TING Home Meds Home Medications Medication Instructions Recorded Confirmed acetaminophen 500 mg tablet 1,000 mg PO HS 07/19/18 02/10/23 (Tylenol Extra Strength) albuterol sulfate 90 mcg/actuation 2 puff inhalation Q4H PRN Cough or 07/19/18 02/10/23 aerosol inhaler (ProAir HFA) Wheezing clobetasol 0.05 % topical ointment 1 applic topical 2XWK PRN Skin 07/19/18 02/10/23 Irritation fluticasone 250 mcg-salmeterol 50 1 inh inhalation Q12H 07/19/18 02/10/23 mcg/dose blistr powdr for inhalation (Advair Diskus) losartan 50 mg tablet 50 mg PO QAM 07/19/18 02/10/23 montelukast 10 mg tablet 10 mg PO HS 07/19/18 02/10/23 [id number]-yzl-vrdvv acid 0.4 1 tab PO QAM 07/19/18 02/10/23 mg-lycopene 300 mcg-lutein 250 mcg tablet (Centrum Silver) pravastatin 20 mg tablet 20 mg PO HS 07/19/18 02/10/23 cholecalciferol (vitamin D3) 25 1,000 unit PO QAM 08/13/18 02/10/23 mcg (1,000 unit) tablet (Vitamin D3) melatonin 3 mg tablet 6 mg PO HS 08/13/18 02/10/23 aspirin 81 mg chewable tablet 81 mg PO QAM 04/15/19 02/10/23 sodium chloride 0.65 % nasal spray 1 spray intranasal BID 04/15/19 02/10/23 aerosol ([place] Nasal) Bifidobacterium infantis 4 mg 4 mg PO QAM 03/30/22 02/10/23 capsule (Align) calcium-vitamin D3-vitamin K 500 1 tab PO DAILY 03/30/22 02/10/23 mg-100 unit-40 mcg chewable tablet metoprolol succinate 25 mg 25 mg PO BID 03/30/22 02/10/23 tablet,extended release 24 hr pantoprazole 20 mg tablet,delayed 40 mg PO QAM 03/30/22 02/10/23 release polyethylene glycol 3350 17 gram 17 g PO QPM 03/30/22 02/10/23 oral powder packet (Miralax) furosemide 40 mg tablet 40 mg PO DAILY 01/20/23 02/10/23 guaifenesin 600 mg tablet, 600 mg PO BID 01/20/23 02/10/23 extended release 12 hr mirtazapine 15 mg tablet 15 mg PO DAILY insomnia 01/20/23 02/10/23 spironolactone 25 mg tablet 12.5 mg PO DAILY 01/20/23 02/10/23 Results & Data (ED) Vital Signs Vital Signs - 24 hr 02/10/23 08:07 02/10/23 08:02/10/23 09:00 Temperature 36.6 C Temperature Source Oral Pulse Rate 93 H 97 H Pulse Rate [Apical] 90 Pulse Rhythm Regular Pulse Rhythm [Apical] Regular Pulse Strength Normal Pulse Strength [Apical] Normal Respiratory Rate 22 20 Respiratory Effort / Characteristics Non-Labored Spontaneous Non-Labored Spontaneous Respiratory Depth Normal Normal Respiratory Pattern Regular Regular Blood Pressure 127/89 Blood Pressure [Left Arm] 130/86 Blood Pressure Mean 101 Blood Pressure Mean [Left Arm] 100 Blood Pressure Position Semi-fowlers Blood Pressure Position [Left Arm] Pulse Oximetry 97 98 Oxygen Delivery Method Room Air Room Air Sepsis Recent Fever Within 48 Hours No Sepsis New/Unexplained Change in Mental Status No Sepsis Action Taken by Nursing No Action Required 02/10/23 10:05 02/10/23 13:17 Temperature Temperature Source Pulse Rate 107 H Pulse Rate [Apical] 93 H Pulse Rhythm Pulse Rhythm [Apical] Regular Pulse Strength Pulse Strength [Apical] Normal Respiratory Rate 20 Respiratory Effort / Characteristics Non-Labored Spontaneous Respiratory Depth Normal Respiratory Pattern Regular Blood Pressure Blood Pressure [Left Arm] 136/93 Blood Pressure Mean Blood Pressure Mean [Left Arm] 107 Blood Pressure Position Blood Pressure Position [Left Arm] Semi-fowlers Pulse Oximetry 96 Oxygen Delivery Method Room Air Sepsis Recent Fever Within 48 Hours Sepsis New/Unexplained Change in Mental Status Sepsis Action Taken by Snf Medications Current Medication List: was personally reviewed by me Laboratory Data Attestation: I reviewed the patient's lab results. 02/10/23 09:16 02/10/23 09:16 Lab Results 02/10/23 02/10/23 02/10/23 Range/Units 09:16 09:16 09:50 WBC 6.72 (4.8-10.8) K/ul RBC 4.04 L (4.20-5.40) M/uL Hgb 12.7 (12.0-16.0) g/dl Hct 37.5 (37.0-47.0) % MCV 92.8 (80.0-100.0) fL MCH 31.4 (25.0-34.0) pg MCHC 33.9 (32.0-36.0) g/dL RDW Std Deviation 48.7 H (36.4-46.3) fL RDW Coeff of Bere 14.4 (11.5-14.5) % Plt Count 240 (130-400) K/uL MPV 9.9 (9.4-12.4) fL Immature Gran % (Auto) 0.3 % Neut % (Auto) 67.4 % Lymph % (Auto) 17.6 % [place] % (Auto) 11.9 % Eos % (Auto) 2.5 % Baso % (Auto) 0.3 % Neut # (Auto) 4.53 (1.40-6.50) K/uL Lymph # (Auto) 1.18 L (1.2-3.4) K/uL [place] # (Auto) 0.80 H (0.11-0.59) K/uL Eos # (Auto) 0.17 (0-0.50) K/uL Baso # (Auto) 0.02 (0-0.2) K/uL Immature Gran # (Auto) 0.02 (0.01-0.20) K/uL Sodium 139 (136-145) mmol/L Potassium 4.0 (3.5-5.1) mmol/L Chloride 104 (98-107) mmol/L Carbon Dioxide 28 (21-32) mmol/L Anion Gap 7 (3-11) BUN 18 (6-23) mg/dl Creatinine 1.08 (0.6-1.2) mg/dl Est Cr Clr Drug Dosing 42.3 ml/min Est GFR ( Amer) 56.5 ml/min Est GFR (Non-Af Amer) 48.8 ml/min BUN/Creatinine Ratio 16.7 (10-20) Glucose 93 (70-99(Fasting)) mg/dl Calcium 9.1 (8.6-10.3) mg/dl Total Bilirubin 0.5 (0.2-1.0) mg/dl AST 25 (13-39) U/L ALT 22 (7-52) U/L Alkaline Phosphatase 97 (34-104) U/L Troponin I High Sens 7.4 (0-14) pg/ml Total Protein 6.7 (6.0-8.3) gm/dl Albumin 3.8 (3.4-5.0) gm/dl Globulin 2.9 (2.5-4.0) gm/dl Albumin/Globulin Ratio 1.3 (0.9-2) Triglycerides 106 (0-150) mg/dl Cholesterol 167 (0-200) mg/dl LDL Cholesterol, Calc 98 mg/dl VLDL Cholesterol, Calc 21 (0-30) mg/dl HDL Cholesterol 48 mg/dl Cholesterol/HDL Ratio 3.5 (0-5) Lipase 17 (11-82) U/L Urine Color Yellow Urine Appearance Clear (Clear) Urine pH 7.5 (4.5-7.5) Ur Specific [place] 1.014 (1.000-1.030) Urine Protein Negative (Negative) Urine Glucose (UA) Negative (Negative) Urine Ketones Negative (Negative) Urine Blood Negative (Negative) Urine Nitrite Negative (Negative) Urine Bilirubin Negative (Negative) Urine Urobilinogen Negative (Negative) Ur Leukocyte Esterase Trace H (Negative) Urine WBC (Auto) 1-5 (0-5) /hpf Urine RBC (Auto) 0-4 (0-4) /hpf U Hyaline Cast (Auto) 0 (0-5) /lpf U Epithel Cells (Auto) 5-10 H (0-5) /lpf Urine Bacteria (Auto) Negative (Negative) SARS-CoV-2, RNA, NAAT (NEGATIVE) 02/10/23 Range/Units 11:26 WBC (4.8-10.8) K/ul RBC (4.20-5.40) M/uL Hgb (12.0-16.0) g/dl Hct (37.0-47.0) % MCV (80.0-100.0) fL MCH (25.0-34.0) pg MCHC (32.0-36.0) g/dL RDW Std Deviation (36.4-46.3) fL RDW Coeff of Bere (11.5-14.5) % Plt Count (130-400) K/uL MPV (9.4-12.4) fL Immature Gran % (Auto) % Neut % (Auto) % Lymph % (Auto) % [place] % (Auto) % Eos % (Auto) % Baso % (Auto) % Neut # (Auto) (1.40-6.50) K/uL Lymph # (Auto) (1.2-3.4) K/uL [place] # (Auto) (0.11-0.59) K/uL Eos # (Auto) (0-0.50) K/uL Baso # (Auto) (0-0.2) K/uL Immature Gran # (Auto) (0.01-0.20) K/uL Sodium (136-145) mmol/L Potassium (3.5-5.1) mmol/L Chloride (98-107) mmol/L Carbon Dioxide (21-32) mmol/L Anion Gap (3-11) BUN (6-23) mg/dl Creatinine (0.6-1.2) mg/dl Est Cr Clr Drug Dosing ml/min Est GFR ( Amer) ml/min Est GFR (Non-Af Amer) ml/min BUN/Creatinine Ratio (10-20) Glucose (70-99(Fasting)) mg/dl Calcium (8.6-10.3) mg/dl Total Bilirubin (0.2-1.0) mg/dl AST (13-39) U/L ALT (7-52) U/L Alkaline Phosphatase (34-104) U/L Troponin I High Sens (0-14) pg/ml Total Protein (6.0-8.3) gm/dl Albumin (3.4-5.0) gm/dl Globulin (2.5-4.0) gm/dl Albumin/Globulin Ratio (0.9-2) Triglycerides (0-150) mg/dl Cholesterol (0-200) mg/dl LDL Cholesterol, Calc mg/dl VLDL Cholesterol, Calc (0-30) mg/dl HDL Cholesterol mg/dl Cholesterol/HDL Ratio (0-5) Lipase (11-82) U/L Urine Color Urine Appearance (Clear) Urine pH (4.5-7.5) Ur Specific [place] (1.000-1.030) Urine Protein (Negative) Urine Glucose (UA) (Negative) Urine Ketones (Negative) Urine Blood (Negative) Urine Nitrite (Negative) Urine Bilirubin (Negative) Urine Urobilinogen (Negative) Ur Leukocyte Esterase (Negative) Urine WBC (Auto) (0-5) /hpf Urine RBC (Auto) (0-4) /hpf U Hyaline Cast (Auto) (0-5) /lpf U Epithel Cells (Auto) (0-5) /lpf Urine Bacteria (Auto) (Negative) SARS-CoV-2, RNA, NAAT NEGATIVE (NEGATIVE) Administered Medications Sodium Chloride (Nss 1000ml) 1,000 mls @ 75 mls/hr IV .[id number] ROSEMARY Stop: 02/11/23 15:24 Last Admin: 02/10/23 13:13 Dose: 75 mls/hr Documented By: DAMIR Discontinued Medications Al Hydrox/Mg Hydrox/Simethicone (Gi Cocktail Ed Use) 1 dose PO ONE STA Stop: 02/10/23 12:50 Last Admin: 02/10/23 13:11 Dose: 1 dose Documented By: DAMIR Al Hydrox/Mg Hydrox/Simethicone (Gi Cocktail Ed Use) Confirm Administered Dose 1 dose PO .STK-MED ONE Stop: 02/10/23 13:04 Last Admin: 02/10/23 13:11 Dose: Not Given Documented By: DAMIR Sodium Chloride (Nss) 500 mls @ 999 mls/hr IV .Q31M STA Stop: 02/10/23 09:14 Last Infusion: 02/10/23 11:13 Dose: 0 mls/hr Documented By: Admin: 02/10/23 09:39 Dose: 999 mls/hr Documented By: DIANA Amikacin Sulfate 750 mg/ (Dextrose) 253 mls @ 250 mls/hr IV NOW ONE Stop: 02/10/23 10:30 Last Infusion: 02/10/23 11:13 Dose: 0 mls/hr Documented By: Admin: 02/10/23 09:40 Dose: 250 mls/hr Documented By: DIANA Ioversol (Optiray 320 100ml) 89 ml IV ONCE ONE Stop: 02/10/23 10:30 Last Admin: 02/10/23 10:29 Dose: 89 ml Documented By: BRANDEN Ondansetron HCl (Ondansetron Inj 2 Mg/Ml 2 Ml Vial) 4 mg IV NOW STA Stop: 02/10/23 08:45 Last Admin: 02/10/23 09:39 Dose: 4 mg Documented By: DIANA Imaging Data Radiologist's Impression: Abdomen/Pelvis CT 02/10/23 08:[address] WITH IV CONTRAST CT DOSE: 953.86 mGy.cm HISTORY: epigastric pain TECHNIQUE: Multiaxial CT images of the abdomen and pelvis were performed following the use of intravenous contrast. A dose lowering technique was utilized adhering to the principles of ALARA. COMPARISON STUDY: Abdomen and pelvis CT 04/15/2019. FINDINGS: Bibasilar linear densities consistent with subsegmental atelectasis. Mild interstitial thickening noted at the lung bases. This is likely chronic. No pneumoperitoneum. No pneumatosis. There is a left total hip arthroplasty. No acute fractures identified. Hepatic steatosis. Subtle nodular contour to the liver, unchanged. This could represent early cirrhosis. A few hypodense lesions within the right hepatic lobe remain unchanged. Dominant lesion measures 2.7 cm. These favor cysts. Cholecystectomy. Mild central intrahepatic bile duct dilatation, unchanged. The main portal vein is patent. There is mild inflammatory change at the uncinate process of the pancreas. This is consistent with an acute pancreatitis. No peripancreatic fluid collections or abscess identified. Mild thickening of the third portion of the duodenum is likely reactive. The spleen is normal in size. 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 The adrenal glands are unremarkable. Multiple bilateral renal calculi are again noted. Multiple subcentimeter bilateral renal hypodense lesions are technically too small to characterize. Stable 13 mm circumscribed epigastric nodule on image 59. This could represent a splenule. Normal caliber abdominal aorta. No retroperitoneal or pelvic lymphadenopathy. No pelvic free fluid. The bladder is unremarkable. Prior cholecystectomy. Colonic diverticulosis. No evidence for acute diverticulitis. No evidence for a bowel obstruction. Prior appendectomy. IMPRESSION: 1. Mild inflammatory change surrounding the uncinate process of the pancreas consistent with acute pancreatitis. 2. Mild thickening at the third portion of the duodenum which is likely reactive to the suspected pancreatitis. A superimposed duodenitis could also have a similar appearance. 3. Bilateral nephrolithiasis. No ureteral stones. No hydronephrosis. 4. Additional findings as described above. ACT 112: Negative or not required by law. Electronically signed by: Ricardo Segovia M.D. 02/10/2023 11:09 AM Discharge Plan Visit Data Chief Complaint: Abdominal Pain Stated Complaint: FATIGUE, UPPER GASTRIC PAIN ED Provider: Pino Avila Discharge Problem: Pancreatitis, Abdominal pain, Nausea Forms Stand Alone Forms: [facility] Prescriptions Prescriptions: No Action losartan 50 mg Tablet 50 mg PO QAM fluticasone propion-salmeterol [Advair Diskus] 250-50 mcg/dose Blister With Device 1 inh INHALATION Q12H acetaminophen [Tylenol Extra Strength] 500 mg Tablet 1,000 mg PO HS montelukast 10 mg Tablet 10 mg PO HS pravastatin 20 mg Tablet 20 mg PO HS clobetasol 0.05 % Ointment 1 applic TOPICAL 2XWK PRN (Reason: Skin Irritation) Rx Instructions: Apply as directed to affected area(s) albuterol sulfate [ProAir HFA] 90 mcg/actuation Hfa Aerosol Inhaler 2 puff INHALATION Q4H PRN (Reason: Cough or Wheezing) Centrum Silver 0.4-300-250 mg-mcg-mcg Tablet 1 tab PO QAM cholecalciferol (vitamin D3) [Vitamin D3] 1,000 unit Tablet 1,000 unit PO QAM melatonin 3 mg Tablet 6 mg PO HS Rx Instructions: TAKE THIS MEDICATION ONE HOUR PRIOR TO BEDTIME aspirin 81 mg Tablet,Chewable 81 mg PO QAM [place] Nasal 0.65 % Aerosol,[place] 1 spray INTRANASAL BID polyethylene glycol 3350 [Miralax] 17 gram Powder In Packet 17 g PO QPM pantoprazole 20 mg Tablet,Delayed Release (Dr/Ec) 40 mg PO QAM metoprolol succinate 25 mg Tablet Extended Release 24 Hr 25 mg PO BID calcium-vitamin D3-vitamin K 500-100-40 mg-unit-mcg Tablet,Chewable 1 tab PO DAILY Align 4 mg Capsule 4 mg PO QAM spironolactone 25 mg Tablet 12.5 mg PO DAILY furosemide 40 mg Tablet 40 mg PO DAILY Rx Instructions: take 1 additional tablet if needed for increased swelling mirtazapine 15 mg Tablet 15 mg PO DAILY guaifenesin 600 mg Tablet Extended Release 12hr 600 mg PO BID Referrals Referrals: Dayron Perez DO [Primary Care Provider] -
[2023-02-10] MEDS ORDERED: SODIUM CHLORIDE 0.9% 500 ML IV STA (08:44)
[2023-02-10] MEDS ORDERED: ONDANSETRON INJ 2 MG/ML 2 ML VIAL IV STA (08:44)
[2023-02-10] MEDS ORDERED: DEXTROSE 5% IV ONE (09:30)
[2023-02-10] MEDS ORDERED: AMIKACIN SULFATE IV ONE (09:30)
[2023-02-10 09:59] LABS: Albumin Globulin Ratio 1.3 (0.9-2); Albumin Level 3.8 gm/dl (3.4-5.0); BUN Creatinine Ratio 16.7 (10-20); Bilirubin,Total 0.5 mg/dl (0.2-1.0); Calcium 9.1 mg/dl (8.6-10.3); Creatinine Clr Calc Pharmacy 42.3 ml/min; Est GFR (African American) 56.5 ml/min; Est GFR (Non-African American) 48.8 ml/min; Globulin 2.9 gm/dl (2.5-4.0); Total Protein 6.7 gm/dl (6.0-8.3)
[2023-02-10 10:06] LABS: Troponin I High Sensitivity 7.4 pg/ml (0-14)
[2023-02-10 10:14] LABS: Basophils # (auto) 0.02 K/uL (0-0.2); Basophils % (auto) 0.3 %; Eosinophils # (auto) 0.17 K/uL (0-0.50); Eosinophils % (auto) 2.5 %; Hematocrit (blood only) 37.5 % (37.0-47.0); Hemoglobin 12.7 g/dl (12.0-16.0); Immature Granulocytes # (auto) 0.02 K/uL (0.01-0.20); Immature Granulocytes % (auto) 0.3 %; Lymphocytes # (auto) 1.18 K/uL (1.2-3.4); Lymphocytes % (auto) 17.6 %; Mean Corpuscular Hemoglobin 31.4 pg (25.0-34.0); Mean Corpuscular Hgb Conc 33.9 g/dL (32.0-36.0); Mean Corpuscular Volume 92.8 fL (80.0-100.0); Mean Platelet Volume 9.9 fL (9.4-12.4); Monocytes % (auto) 11.9 %; Neutrophils # (auto) 4.53 K/uL (1.40-6.50); Neutrophils % (auto) 67.4 %; Platelet Count 240 K/uL (130-400); RDW Coefficient of Variation 14.4 % (11.5-14.5); RDW Standard Deviation 48.7 fL (36.4-46.3); Red Blood Count 4.04 M/uL (4.20-5.40); White Blood Count 6.72 K/ul (4.8-10.8)
[2023-02-10] MEDS ORDERED: OPTIRAY 320 100ml IV ONE (10:29)
[2023-02-10 10:49] LABS: Appearance Urine Clear (Clear); Bacteria Urine Automated Negative (Negative); Bilirubin Urine Negative (Negative); Blood Urine Negative (Negative); Cast Urine Automated 0 /lpf (0-5); Color Urine Yellow; Glucose Urine UA Negative (Negative); Ketones Urine Negative (Negative); Leukocyte Esterase Urine Trace (Negative); Nitrite Urine Negative (Negative); Protein Urine Negative (Negative); RBC Urine Automated 0-4 /hpf (0-4); Specific Gravity Urine 1.014 (1.000-1.030); Urobilinogen Urine Negative (Negative); pH Urine 7.5 (4.5-7.5)
--- NOTE | 2023-02-10 11:10 | CT Scan Report ---
ABDOMEN AND PELVIS CT WITH IV CONTRAST CT DOSE: 953.86 mGy.cm HISTORY: epigastric pain TECHNIQUE: Multiaxial CT images of the abdomen and pelvis were performed following the use of intrave nous contrast. A dose lowering technique was utilized adhering to the principles of ALARA. COMPARISON STUDY: Abdomen and pelvis CT 04/15/2019. FINDINGS: Bibasilar linear densities consistent with subsegmental atelectasis. Mild interstitial thic kening noted at the lung bases. This is likely chronic. No pneumoperitoneum. No pneumatosis. There is a left total hip arthroplasty. No acute fractures identified. Hepatic steatosis. Subtle nodular cont our to the liver, unchanged. This could represent early cirrhosis. A few hypodense lesions within the right hepatic lobe remain unchanged. Dominant lesion measures 2.7 cm. These favor cysts. Cholecystec darlin. Mild central intrahepatic bile duct dilatation, unchanged. The main portal vein is patent. Ther e is mild inflammatory change at the uncinate process of the pancreas. This is consistent with an acu te pancreatitis. No peripancreatic fluid collections or abscess identified. Mild thickening of the th ird portion of the duodenum is likely reactive. The spleen is normal in size. There is an 8 mm periph erally calcified splenic artery aneurysm, unchanged. The adrenal glands are unremarkable. Multiple bi lateral renal calculi are again noted. Multiple subcentimeter bilateral renal hypodense lesions are t echnically too small to characterize. Stable 13 mm circumscribed epigastric nodule on image 59. This could represent a splenule. Normal caliber abdominal aorta. No retroperitoneal or pelvic lymphadenopa thy. No pelvic free fluid. The bladder is unremarkable. Prior cholecystectomy. Colonic diverticulosis . No evidence for acute diverticulitis. No evidence for a bowel obstruction. Prior appendectomy. IMPRESSION: 1. Mild inflammatory change surrounding the uncinate process of the pancreas consistent with acute pa ncreatitis. 2. Mild thickening at the third portion of the duodenum which is likely reactive to the suspected zendejas creatitis. A superimposed duodenitis could also have a similar appearance. 3. Bilateral nephrolithiasis. No ureteral stones. No hydronephrosis. 4. Additional findings as described above. ACT 112: Negative or not required by law. Electronically signed by: Ricardo Segovia M.D. 02/10/2023 11:09 AM
[2023-02-10] MEDS ORDERED: MAGNESIUM HYDROXIDE SUSP 30 ML UDC PO PRN (11:49)
[2023-02-10] MEDS ORDERED: POLYETHYLENE (MIRALAX) 17 GM PACK PO PRN (11:49)
[2023-02-10] MEDS ORDERED: ALUMINUM/MAGNESIUM SUSP 30 ML UDC PO PRN (11:49)
[2023-02-10] MEDS ORDERED: ACETAMINOPHEN 325 MG TAB PO PRN (11:49)
[2023-02-10] MEDS ORDERED: GI COCKTAIL ED USE PO STA (12:49)
[2023-02-10] MEDS ORDERED: ALUMINUM/MAGNESIUM SUSP 18 ML, LIDOCAINE VISCOUS 2% SOLN 6 ML, BARCODE IDENTIFIER 1 EACH PO ONE (13:00)
[2023-02-10] MEDS ORDERED: GI COCKTAIL ED USE PO ONE (13:03)
[2023-02-10 13:13] LABS: Chol HDL Ratio 3.5 (0-5)
[2023-02-10] MEDS: SODIUM CHLORIDE 0.9% 1000ML 1,000 ML IV SCH (13:13)
--- NOTE | 2023-02-10 14:02 | History & Physical Report ---
Date of Service February 10, 2023 Assessment & Plan (1) Abdominal pain: (2) Duodenitis: (3) Nausea: (4) Non-tuberculous mycobacterial pneumonia: (5) Hypertension: (6) Dyslipidemia: (7) GERD (gastroesophageal reflux disease): Plan 77 year old female that presents to [facility] for abdominal pain; abdominal/pelvic CT suggestive of acute pancreatitis vs duodenitis. Pt has had cholecystectomy prior. Gi consult; NPO for bowel rest, repeat AM LFT's and Lipase, NSS, GI cocktail and pain control PRN. Currently sees Dr. Galvez with ID for management of non-TB mycobacterial PNA. Abdominal pain: Duodenitits: Nausea: 10/10 epigastric abdominal pain; returned to 10/04 Abdominal/pelvis CT: 1. Mild inflammatory change surrounding the uncinate process of the pancreas consistent with acute pancreatitis. 2. Mild thickening at the third portion of the duodenum which is likely reactive to the suspected pancreatitis. A superimposed duodenitis could also have a similar appearance. NS @ 75ml/hour x2 bags; reassess No transaminitis No lipase elevation NPO for bowel rest GI consult placed and recommended in addition to the above: IV PPI BID x 48 h --> PO PPI BID x 1 month then PO PPI once daily GI Cocktail Tylenol PRN as pain has resolved OPT EGD recc by GI Non-TB mycobacterial PNA: Follows with Dr. Galvez, ID Completed Azithromycin course Has PICC line and is currently taking Amikacin HTN: Takes Losartan and Metoprolol; continue HLD: Takes Pravastatin; continue GERD: Takes Protonix; will switch to IV per GI reccs Disposition: PCP: Dr. Perez Code:Full Code VTE Prophylaxis: Heparin SQ I spent a total of 87 minutes coordinating, documenting, and providing care for this patient excluding time spent in the performance of separately billed services. All of the aforementioned completed while collaborating with the assigned attending physician for a full treatment plan. Please see their addendum for further details. History of Present Illness Chief Complaint: abdominal pain Primary Care Provider: Dayron Perez DO Ms. Forman is a 77-year-old female that presented to the [facility] ED today with 10 out of 10 epigastric pain that started yesterday around 3 PM. Patient was recently completed course of azithromycin and is currently taking mucus and IV amikacin and is on dose 6 of 7. Patient reports no other new medications over the past few months. Abdominal pelvis CT indicated mild inflammation with acute pancreatitis. No necrosis noted on CT patient has had cholecystectomy in the past. No transam initis noted on labs, no leukocytosis, lipase 17. BISAP score 1. Patient has had colonoscopy and EGD in the past; Most recently EGD 2021 negative with specimen collection. 1 benign polyp noted. Additional past medical history includes on non-TB mycobacterial pneumonia, HTN, history of Lyme's disease, HLD, depression and asthma. Patient denies fever, chills, headache, dizziness, cough, nausea, vomiting, diarrhea, appetite changes, recent falls or trauma. Patient denies alcohol, tobacco or recreational drug use. Patient does report family history of GI malignancy; dad currently with colon cancer Patient will be admitted for further evaluation and management. Please see A/P for further details. Allergies Allergy/AdvReac Type Severity Reaction Status Date / Time Quinolones Allergy Mild RASH Verified 02/10/23 11:18 epinephrine AdvReac Intermediate Jittery,disoriented,nausea Verified 02/10/23 11:18 and vomiting amoxicillin AdvReac Mild Diarrhea Verified 02/10/23 11:18 morphine AdvReac Mild NAUSEA/VOMI Verified 02/10/23 11:18 TING Home Medications Medication Instructions Recorded Confirmed Type acetaminophen 500 mg tablet 1,000 mg PO HS 07/19/18 02/10/23 History (Tylenol Extra Strength) albuterol sulfate 90 mcg/actuation 2 puff inhalation Q4H PRN Cough or 07/19/18 02/10/23 History aerosol inhaler (ProAir HFA) Wheezing clobetasol 0.05 % topical ointment 1 applic topical 2XWK PRN Skin 07/19/18 02/10/23 History Irritation fluticasone 250 mcg-salmeterol 50 1 inh inhalation Q12H 07/19/18 02/10/23 History mcg/dose blistr powdr for inhalation (Advair Diskus) losartan 50 mg tablet 50 mg PO QAM 07/19/18 02/10/23 History montelukast 10 mg tablet 10 mg PO HS 07/19/18 02/10/23 History xkzcrelh-uzo-uqkhk acid 0.4 1 tab PO QAM 07/19/18 02/10/23 History mg-lycopene 300 mcg-lutein 250 mcg tablet (Centrum Silver) pravastatin 20 mg tablet 20 mg PO HS 07/19/18 02/10/23 History cholecalciferol (vitamin D3) 25 1,000 unit PO QAM 08/13/18 02/10/23 History mcg (1,000 unit) tablet (Vitamin D3) melatonin 3 mg tablet 6 mg PO HS 08/13/18 02/10/23 History aspirin 81 mg chewable tablet 81 mg PO QAM 04/15/19 02/10/23 History sodium chloride 0.65 % nasal spray 1 spray intranasal BID 04/15/19 02/10/23 History aerosol ([place] Nasal) Bifidobacterium infantis 4 mg 4 mg PO QAM 03/30/22 02/10/23 History capsule (Align) calcium-vitamin D3-vitamin K 500 1 tab PO DAILY 03/30/22 02/10/23 History mg-100 unit-40 mcg chewable tablet metoprolol succinate 25 mg 25 mg PO BID 03/30/22 02/10/23 History tablet,extended release 24 hr pantoprazole 20 mg tablet,delayed 40 mg PO QAM 03/30/22 02/10/23 History release polyethylene glycol 3350 17 gram 17 g PO QPM 03/30/22 02/10/23 History oral powder packet (Miralax) furosemide 40 mg tablet 40 mg PO DAILY 01/20/23 02/10/23 History guaifenesin 600 mg tablet, 600 mg PO BID 01/20/23 02/10/23 History extended release 12 hr mirtazapine 15 mg tablet 15 mg PO DAILY insomnia 01/20/23 02/10/23 History spironolactone 25 mg tablet 12.5 mg PO DAILY 01/20/23 02/10/23 History Past Med/Surg History Medical History (Updated 02/10/23 @ 13:56 by YARELIS Cervantes) Asthma HAS NOT USED RESCUE INHALER RECENTLY Duodenitis Fungal infection of lung GERD (gastroesophageal reflux disease) Hearing deficit History of depression Hyperlipidemia Hypertension Non-tuberculous mycobacterial pneumonia Surgical History H/O bilateral oophorectomy H/O bladder repair surgery BLADDER SLING History of bilateral tubal ligation History of bronchoscopy History of cholecystectomy History of colonoscopy History of dilatation and curettage History of esophagogastroduodenoscopy (EGD) History of hysterectomy History of tooth extraction History of total hip arthroplasty LEFT Hx of blepharoplasty BILAT. Hx of hernia repair S/P appendectomy (04/15/19) Laparoscopic Appendectomy, Repair of recurrent incarcerated Right Femoral Hernia 04/15/19 Dr. Martino S/P cataract surgery RT/LEFT Family History Father Family history of diabetes mellitus Colorectal cancer Hypertension Brother Family history of diabetes mellitus Heart disease Sister Family history of diabetes mellitus Hypertension Father Family hx of colon cancer Heart disease Cancer Other No family history of adverse response to anesthesia Social History Smoking Status: Never smoker Second Hand Exposure: No; Do You Dip or Chew Tobacco: No; Hx Alcohol Use: No Hx Substance Use: No Preferred Language: Bahraini Communication Ability: Effective Thumb Sewer Required: No Beliefs That Will Affect Care: None marital status: / Current Living Situation: Alone Feels Safe at Home: Yes Assistive Devices: Glasses and Hearing Aid - Bilateral Review of Systems Review of Systems: See. Dr. Dominguez's addendum for details Physical Exam Physical Exam: See. Dr. Dominguez's addendum for details Results & Data Results & Data Vital Signs (Past 12 Hours) Vital Signs Temp Pulse Pulse Resp BP BP Pulse Ox 02/10/23 13:17 107 H 02/10/23 10:05 93 H 20 136/93 96 02/10/23 09:00 90 20 130/86 98 02/10/23 08:22 97 H 02/10/23 08:07 36.6 C 93 H 22 127/89 97 O2 Del Method 02/10/23 13:17 02/10/23 10:05 Room Air 02/10/23 09:00 Room Air 02/10/23 08:22 02/10/23 08:07 Room Air Laboratory Results Short CBC 02/10/23 Range/Units 09:16 WBC 6.72 (4.8-10.8) K/ul Hgb 12.7 (12.0-16.0) g/dl Hct 37.5 (37.0-47.0) % Plt Count 240 (130-400) K/uL BMP 02/10/23 09:16 Sodium 139 Potassium 4.0 Chloride 104 Carbon Dioxide 28 BUN 18 Creatinine 1.08 Glucose 93 Calcium 9.1 Liver Function 02/10/23 Range/Units 09:16 Total Bilirubin 0.5 (0.2-1.0) mg/dl AST 25 (13-39) U/L ALT 22 (7-52) U/L Alkaline Phosphatase 97 (34-104) U/L Albumin 3.8 (3.4-5.0) gm/dl Urine 02/10/23 Range/Units 09:50 Urine Color Yellow Urine Appearance Clear (Clear) Urine pH 7.5 (4.5-7.5) Ur Specific [place] 1.014 (1.000-1.030) Urine Protein Negative (Negative) Urine Glucose (UA) Negative (Negative) Diagnostic Findings Abdomen/Pelvis CT 02/10/23 08:[address] WITH IV CONTRAST CT DOSE: 953.86 mGy.cm HISTORY: epigastric pain TECHNIQUE: Multiaxial CT images of the abdomen and pelvis were performed following the use of intravenous contrast. A dose lowering technique was utilized adhering to the principles of ALARA. COMPARISON STUDY: Abdomen and pelvis CT 04/15/2019. FINDINGS: Bibasilar linear densities consistent with subsegmental atelectasis. Mild interstitial thickening noted at the lung bases. This is likely chronic. No pneumoperitoneum. No pneumatosis. There is a left total hip arthroplasty. No acute fractures identified. Hepatic steatosis. Subtle nodular contour to the liver, unchanged. This could represent early cirrhosis. A few hypodense lesions within the right hepatic lobe remain unchanged. Dominant lesion measures 2.7 cm. These favor cysts. Cholecystectomy. Mild central intrahepatic bile duct dilatation, unchanged. The main portal vein is patent. There is mild inflammatory change at the uncinate process of the pancreas. This is consistent with an acute pancreatitis. No peripancreatic fluid collections or abscess identified. Mild thickening of the third portion of the duodenum is likely reactive. The spleen is normal in size. 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 The adrenal glands are unremarkable. Multiple bilateral renal calculi are again noted. Multiple subcentimeter bilateral renal hypodense lesions are technically too small to characterize. Stable 13 mm circumscribed epigastric nodule on image 59. This could represent a splenule. Normal caliber abdominal aorta. No retroperitoneal or pelvic lymphadenopathy. No pelvic free fluid. The bladder is unremarkable. Prior ch olecystectomy. Colonic diverticulosis. No evidence for acute diverticulitis. No evidence for a bowel obstruction. Prior appendectomy. IMPRESSION: 1. Mild inflammatory change surrounding the uncinate process of the pancreas consistent with acute pancreatitis. 2. Mild thickening at the third portion of the duodenum which is likely reactive to the suspected pancreatitis. A superimposed duodenitis could also have a similar appearance. 3. Bilateral nephrolithiasis. No ureteral stones. No hydronephrosis. 4. Additional findings as described above. ACT 112: Negative or not required by law. Electronically signed by: Ricardo Segovia M.D. 02/10/2023 11:09 AM Code Status & VTE Plan Code Status Full Code in the event of cardiac or respiratory arrest VTE Prophylaxis Plan VTE Prophylaxis will be ordered: Yes Supervising Physician Co-Signing Physician Notes Patient seen and examined independently. Discussed with above provider. 77-year-old female presents with epigastric pain. CT abdomen finding concerning for pancreatitis. History of cholecystectomy. No history of alcohol abuse. We will start on IV fluids, pain control and Protonix. Appreciate GI input. On physical exam Constitutional: WD/WN, vitals as above, NAD, sitting up in bed, pleasant, conversing easily Respiratory: normal respiratory effort, lungs clear to auscultation, no wheeze, rales, rhonchi. Normal insp/exp effort, no accessory muscle use Cardiovascular: RRR, no murmur, no edema Vessels: no JVD or carotid bruit Chest: normal inspection of chest Abdomen: Soft, nontender. Bowel sound present. Musculoskeletal: no cyanosis or clubbing, extremities motor strength 5/5 Skin: no rashes, warm and dry normal turgor Neurologic: PERRL, EOMI, accommodation nl, no face palsy, no dysarthria CN's II- XI intact bilaterally and moves all extremities Psychiatric: A+Ox3, euthymic affect Lymphatic: no cervical or axillary lymphadenopathy : deferred (1) Abdominal pain Abdominal location: epigastric Qualified Code(s): R10.13 - Epigastric pain
--- NOTE | 2023-02-10 14:13 | Gastrointestinal Consultation ---
Date of Consultation February 10, 2023 Assessment & Plan (1) Duodenitis: 77 year old female with history of HTN, lyme, dyslipidemia, non-TB mycobacterial PNA admitted with pain, nausea and decreased appetite, imaging showing duodenitis vs pancreatitis. LFTs and lipase are normal. She is s/p CCY years ago. She was recently started on amikacin, azithromycin and mirtazapine and appears mirtazapine could be associated with medication induced pancreatitis NPO for bowel rest IVF maintenance Analgesia PRN Antiemetics PRN IV PPI BID x 48 hous then PO PPI BID x 1 month then PO PPI once daily OP EGD/EUS Thank you for allowing us to participate in the care of this patient. Please call with any acute changes, questions or concerns. Please see addendum below with additional recommendation from my supervising physician. (2) Pancreatitis: Supervising Physician Co-Signing Physician Notes I saw and evaluated the patient, we are consulted for evaluation of suspected pancreatitis. The patient reports that she has had symptoms intermittently over the past 2 days. She was found to have CT evidence of pancreatitis amatory changes within the pancreatic head and the neck. The patient notes that she is feeling slightly improved as compared to before. She is presently on amikacin in addition to Remeron which were both started over the last few months. The patient did have a prior cholecystectomy performed many years ago. PE: NAD, no scleral icterus mild abdominal tenderness Impression Patient presenting with mild pancreatitis, would recommend continued IV hydration with LR at 150 to 200 ml per hour overnight. Once the patient is pain-free the patient can then be advanced to a clear liquid diet for 1 day then full liquid diet and finally a low-fat diet. With regard to further work-up we would suggest an outpatient endoscopic ultrasound in 6 to 8 weeks. The etiology of her pancreatitis remains unclear however she was recently started on amikacin in addition to Remeron, perhaps these are the cause of her presentation. Suggest stopping the Remeron and would suggest discussing the amikacin with her ID provider. Please call with any additional questions or concerns, GI to sign off. History of Present Illness Reason for Consultation: pancreatitis Requesting Physician: Alberto Attending Physician: Raad Dominguez MD History of Present Illness 77 year old female with history of HTN, lyme, dyslipidemia, non-TB mycobacterial PNA and others below admitted through the ED with pancreatitis. Pt was seen and evaluated, chart reviewed. Family at bedside. Notes that she was recently docto ring wiht ID for non-TB mycobacterial PNA. Started on azithromycin and amikacin IV. Suggests she has had 6/7 doses of the IV ABX. Notes that on Monday she had vague upper abd pain. This worsened on Monday and persisted today at her OP infusion which prompted ED evaluation. Notes nausea. No vomiting. No fever, chills, CP, SOB. No ETOH No tobacco New meds in the past few months azithromycin, amikacin and mirtazapine (Class III) Tbili 0.5 AST 25 ALT 22 ALKP 97 Lipase 17 Surgical history: hysterectomy, oophorectomy, CCY, appendectomy, hernia repair CTAP 2022: Mild inflammatory change surrounding the uncinate process of the pancreas consistent with acute pancreatitis. Mild thickening at the third portion of the duodenum which is likely reactive to the suspected pancreatitis. A superimposed duodenitis could also have a similar appearance. Bilateral nephrolithiasis. No ureteral stones. No hydronephrosis. Additional findings as described above. Video Swallow 2021:No aspiration identified.. Please see the speech pathologist report for detailed findings and recommendations. Barium Swallow 2021:Esophageal dysmotility.. Otherwise normal barium esopha gram. EGD 2021: - Normal esophagus. - Normal stomach. - Normal examined duodenum. - No specimens collected. EGD 2019:Normal esophagus. Dilated. - Normal stomach. - Normal examined duodenum. - No specimens collected. Colonoscopy 2018:Diverticulosis in the sigmoid colon. - The distal rectum and anal verge are normal on retroflexion view. - No specimens collected Colonoscopy 2012:Diverticulosis in the sigmoid colon and in the descending colon. - One benign appearing 3 mm polyp in the rectum. Resected and retrieved. - The distal rectum and anal verge are normal on retroflexion view Family history of GI malignancy:dad w/ colon CA Allergies Allergy/AdvReac Type Severity Reaction Status Date / Time Quinolones Allergy Mild RASH Verified 02/10/23 11:18 epinephrine AdvReac Intermediate Jittery,disoriented,nausea Verified 02/10/23 11:18 and vomiting amoxicillin AdvReac Mild Diarrhea Verified 02/10/23 11:18 morphine AdvReac Mild NAUSEA/VOMI Verified 02/10/23 11:18 TING Home Medications Medication Instructions Recorded Confirmed Type acetaminophen 500 mg tablet 1,000 mg PO HS 07/19/18 02/10/23 History (Tylenol Extra Strength) albuterol sulfate 90 mcg/actuation 2 puff inhalation Q4H PRN Cough or 07/19/18 02/10/23 History aerosol inhaler (ProAir HFA) Wheezing clobetasol 0.05 % topical ointment 1 applic topical 2XWK PRN Skin 07/19/18 02/10/23 History Irritation fluticasone 250 mcg-salmeterol 50 1 inh inhalation Q12H 07/19/18 02/10/23 History mcg/dose blistr powdr for inhalation (Advair Diskus) losartan 50 mg tablet 50 mg PO QAM 07/19/18 02/10/23 History montelukast 10 mg tablet 10 mg PO HS 07/19/18 02/10/23 History umykrmsf-fil-jrqyl acid 0.4 1 tab PO QAM 07/19/18 02/10/23 History mg-lycopene 300 mcg-lutein 250 mcg tablet (Centrum Silver) pravastatin 20 mg tablet 20 mg PO HS 07/19/18 02/10/23 History cholecalciferol (vitamin D3) 25 1,000 unit PO QAM 08/13/18 02/10/23 History mcg (1,000 unit) tablet (Vitamin D3) melatonin 3 mg tablet 6 mg PO HS 08/13/18 02/10/23 History aspirin 81 mg chewable tablet 81 mg PO QAM 04/15/19 02/10/23 History sodium chloride 0.65 % nasal spray 1 spray intranasal BID 04/15/19 02/10/23 History aerosol (Talent Nasal) Bifidobacterium infantis 4 mg 4 mg PO QAM 03/30/22 02/10/23 History capsule (Align) calcium-vitamin D3-vitamin K 500 1 tab PO DAILY 03/30/22 02/10/23 History mg-100 unit-40 mcg chewable tablet metoprolol succinate 25 mg 25 mg PO BID 03/30/22 02/10/23 History tablet,extended release 24 hr pantoprazole 20 mg tablet,delayed 40 mg PO QAM 03/30/22 02/10/23 History release polyethylene glycol 3350 17 gram 17 g PO QPM 03/30/22 02/10/23 History oral powder packet (Miralax) furosemide 40 mg tablet 40 mg PO DAILY 01/20/23 02/10/23 History guaifenesin 600 mg tablet, 600 mg PO BID 01/20/23 02/10/23 History extended release 12 hr mirtazapine 15 mg tablet 15 mg PO DAILY insomnia 01/20/23 02/10/23 History spironolactone 25 mg tablet 12.5 mg PO DAILY 01/20/23 02/10/23 History Patient History Medical History (Updated 02/10/23 @ 13:56 by YARELIS Cervantes) Asthma HAS NOT USED RESCUE INHALER RECENTLY Duodenitis Fungal infection of lung GERD (gastroesophageal reflux disease) Hearing deficit History of depression Hyperlipidemia Hypertension Non-tuberculous mycobacterial pneumonia Surgical History H/O bilateral oophorectomy H/O bladder repair surgery BLADDER SLING History of bilateral tubal ligation History of bronchoscopy History of cholecystectomy History of colonoscopy History of dilatation and curettage History of esophagogastroduodenoscopy (EGD) History of hysterectomy History of tooth extraction History of total hip arthroplasty LEFT Hx of blepharoplasty BILAT. Hx of hernia repair S/P appendectomy (04/15/19) Laparoscopic Appendectomy, Repair of recurrent incarcerated Right Femoral Hernia 04/15/19 Dr. Martino S/P cataract surgery RT/LEFT Family History Father Family history of diabetes mellitus Colorectal cancer Hypertension Brother Family history of diabetes mellitus Heart disease Sister Family history of diabetes mellitus Hypertension Father Family hx of colon cancer Heart disease Cancer Other No family history of adverse response to anesthesia Social History Smoking Status: Never smoker Second Hand Exposure: No; Do You Dip or Chew Tobacco: No; Hx Alcohol Use: No Hx Substance Use: No Preferred Language: Latvian Communication Ability: Effective Capacitor Tester Required: No Beliefs That Will Affect Care: None marital status: / Current Living Situation: Alone Feels Safe at Home: Yes Assistive Devices: Glasses and Hearing Aid - Bilateral Review of Systems Review of Systems: All systems reviewed & are unremarkable except as noted in HPI & below Physical Exam 2 Constitutional: WD/WN, vitals as above Respiratory: normal respiratory effort Cardiovascular: Rate/Rhythm: regular rate Gastrointestinal (Abdomen): Inspection/Auscultation: abdomen normal to inspection and normal bowel sounds Percussion/Palpation: + abdomen tender (mild upper abd) and abdomen soft; no guarding and abdomen not rigid Skin: no rashes, warm and dry Results & Data Vital Signs (Past 12 Hours) Vital Signs Temp Pulse Pulse Resp BP BP Pulse Ox 02/10/23 13:17 107 H 02/10/23 10:05 93 H 20 136/93 96 02/10/23 09:00 90 20 130/86 98 02/10/23 08:22 97 H 02/10/23 08:07 36.6 C 93 H 22 127/89 97 O2 Del Method 02/10/23 13:17 02/10/23 10:05 Room Air 02/10/23 09:00 Room Air 02/10/23 08:22 02/10/23 08:07 Room Air Laboratory Results 02/10/23 02/10/23 02/10/23 Range/Units 11:26 09:50 09:16 WBC (4.8-10.8) K/ul RBC (4.20-5.40) M/uL Hgb (12.0-16.0) g/dl Hct (37.0-47.0) % MCV (80.0-100.0) fL MCH (25.0-34.0) pg MCHC (32.0-36.0) g/dL RDW Std Deviation (36.4-46.3) fL RDW Coeff of Bere (11.5-14.5) % Plt Count (130-400) K/uL MPV (9.4-12.4) fL Immature Gran % (Auto) % Neut % (Auto) % Lymph % (Auto) % Menard % (Auto) % Eos % (Auto) % Baso % (Auto) % Neut # (Auto) (1.40-6.50) K/uL Lymph # (Auto) (1.2-3.4) K/uL Menard # (Auto) (0.11-0.59) K/uL Eos # (Auto) (0-0.50) K/uL Baso # (Auto) (0-0.2) K/uL Immature Gran # (Auto) (0.01-0.20) K/uL Sodium 139 (136-145) mmol/L Potassium 4.0 (3.5-5.1) mmol/L Chloride 104 (98-107) mmol/L Carbon Dioxide 28 (21-32) mmol/L Anion Gap 7 (3-11) BUN 18 (6-23) mg/dl Creatinine 1.08 (0.6-1.2) mg/dl Est Cr Clr Drug Dosing 42.3 ml/min Est GFR ( Amer) 56.5 ml/min Est GFR (Non-Af Amer) 48.8 ml/min BUN/Creatinine Ratio 16.7 (10-20) Glucose 93 (70-99(Fasting)) mg/dl Calcium 9.1 (8.6-10.3) mg/dl Total Bilirubin 0.5 (0.2-1.0) mg/dl AST 25 (13-39) U/L ALT 22 (7-52) U/L Alkaline Phosphatase 97 (34-104) U/L Troponin I High Sens 7.4 (0-14) pg/ml Total Protein 6.7 (6.0-8.3) gm/dl Albumin 3.8 (3.4-5.0) gm/dl Globulin 2.9 (2.5-4.0) gm/dl Albumin/Globulin Ratio 1.3 (0.9-2) Triglycerides 106 (0-150) mg/dl Cholesterol 167 (0-200) mg/dl LDL Cholesterol, Calc 98 mg/dl VLDL Cholesterol, Calc 21 (0-30) mg/dl HDL Cholesterol 48 mg/dl Cholesterol/HDL Ratio 3.5 (0-5) Lipase 17 (11-82) U/L Urine Color Yellow Urine Appearance Clear (Clear) Urine pH 7.5 (4.5-7.5) Ur Specific Capay 1.014 (1.000-1.030) Urine Protein Negative (Negative) Urine Glucose (UA) Negative (Negative) Urine Ketones Negative (Negative) Urine Blood Negative (Negative) Urine Nitrite Negative (Negative) Urine Bilirubin Negative (Negative) Urine Urobilinogen Negative (Negative) Ur Leukocyte Esterase Trace H (Negative) Urine WBC (Auto) 1-5 (0-5) /hpf Urine RBC (Auto) 0-4 (0-4) /hpf U Hyaline Cast (Auto) 0 (0-5) /lpf U Epithel Cells (Auto) 5-10 H (0-5) /lpf Urine Bacteria (Auto) Negative (Negative) SARS-CoV-2, RNA, NAAT NEGATIVE (NEGATIVE) 02/10/23 Range/Units 09:16 WBC 6.72 (4.8-10.8) K/ul RBC 4.04 L (4.20-5.40) M/uL Hgb 12.7 (12.0-16.0) g/dl Hct 37.5 (37.0-47.0) % MCV 92.8 (80.0-100.0) fL MCH 31.4 (25.0-34.0) pg MCHC 33.9 (32.0-36.0) g/dL RDW Std Deviation 48.7 H (36.4-46.3) fL RDW Coeff of Bere 14.4 (11.5-14.5) % Plt Count 240 (130-400) K/uL MPV 9.9 (9.4-12.4) fL Immature Gran % (Auto) 0.3 % Neut % (Auto) 67.4 % Lymph % (Auto) 17.6 % Menard % (Auto) 11.9 % Eos % (Auto) 2.5 % Baso % (Auto) 0.3 % Neut # (Auto) 4.53 (1.40-6.50) K/uL Lymph # (Auto) 1.18 L (1.2-3.4) K/uL Menard # (Auto) 0.80 H (0.11-0.59) K/uL Eos # (Auto) 0.17 (0-0.50) K/uL Baso # (Auto) 0.02 (0-0.2) K/uL Immature Gran # (Auto) 0.02 (0.01-0.20) K/uL Sodium (136-145) mmol/L Potassium (3.5-5.1) mmol/L Chloride (98-107) mmol/L Carbon Dioxide (21-32) mmol/L Anion Gap (3-11) BUN (6-23) mg/dl Creatinine (0.6-1.2) mg/dl Est Cr Clr Drug Dosing ml/min Est GFR ( Amer) ml/min Est GFR (Non-Af Amer) ml/min BUN/Creatinine Ratio (10-20) Glucose (70-99(Fasting)) mg/dl Calcium (8.6-10.3) mg/dl Total Bilirubin (0.2-1.0) mg/dl AST (13-39) U/L ALT (7-52) U/L Alkaline Phosphatase (34-104) U/L Troponin I High Sens (0-14) pg/ml Total Protein (6.0-8.3) gm/dl Albumin (3.4-5.0) gm/dl Globulin (2.5-4.0) gm/dl Albumin/Globulin Ratio (0.9-2) Triglycerides (0-150) mg/dl Cholesterol (0-200) mg/dl LDL Cholesterol, Calc mg/dl VLDL Cholesterol, Calc (0-30) mg/dl HDL Cholesterol mg/dl Cholesterol/HDL Ratio (0-5) Lipase (11-82) U/L Urine Color Urine Appearance (Clear) Urine pH (4.5-7.5) Ur Specific Capay (1.000-1.030) Urine Protein (Negative) Urine Glucose (UA) (Negative) Urine Ketones (Negative) Urine Blood (Negative) Urine Nitrite (Negative) Urine Bilirubin (Negative) Urine Urobilinogen (Negative) Ur Leukocyte Esterase (Negative) Urine WBC (Auto) (0-5) /hpf Urine RBC (Auto) (0-4) /hpf U Hyaline Cast (Auto) (0-5) /lpf U Epithel Cells (Auto) (0-5) /lpf Urine Bacteria (Auto) (Negative) SARS-CoV-2, RNA, NAAT (NEGATIVE) (2) Pancreatitis Acute pancreatitis complication: no infection or necrosis Chronicity: acute Pancreatitis type: unspecified pancreatitis type Qualified Code(s): K85.90 - Acute pancreatitis without necrosis or infection, unspecified
--- NOTE | 2023-02-10 15:36 | Electrocardiogram Report ---
Test Reason : Blood Pressure : / mmHG Vent. Rate : 097 BPM Atrial Rate : 097 BPM P-R Int : 164 ms QRS Dur : 086 ms QT Int : 322 ms P-R-T Axes : 050 033 030 degrees QTc Int : 408 ms Sinus rhythm with Premature atrial complexes Nonspecific T wave abnormality Abnormal ECG When compared with ECG of 06-FEB-2019 12:38, Premature atrial complexes are now Present Nonspecific T wave abnormality now evident in Anterior leads Confirmed by Yomi Resendez ([id number]) on 02/10/2023 3:36:23 PM Referred By: REFERRED SELF Confirmed By:Sha Resendez
[2023-02-10] MEDS: guaiFENesin 600 MG TABCR PO SCH (20:04)
[2023-02-10] MEDS: MELATONIN 3 MG TAB PO SCH (20:05)
[2023-02-10] MEDS: MONTELUKAST SODIUM 10 MG TABLET PO SCH (20:05)
[2023-02-10] MEDS: HEPARIN SOD 5,000 UNIT/0.5 ML VIAL SQ SCH (20:05)
[2023-02-10] MEDS: METOPROLOL SUCC 25MG EXT REL TAB PO SCH (20:06)
[2023-02-10] MEDS: POLYETHYLENE (MIRALAX) 17 GM PACK PO SCH (20:07)
[2023-02-10] MEDS: PANTOprazole 40 MG in SYRINGE 0 ML IV SCH (20:07)
[2023-02-10] MEDS: PRAVASTATIN SOD 20 MG TAB PO SCH (20:08)
[2023-02-10] MEDS: SODIUM CHLORIDE 0.65% NA SOLN 45 ML (OCEAN) SCH (20:18)
[2023-02-10] MEDS: ONDANSETRON INJ 2 MG/ML 2 ML VIAL IV PRN (22:35)
[2023-02-11] MEDS: SODIUM CHLORIDE 0.9% 1000ML 1,000 ML IV SCH (00:07)
[2023-02-11 08:28] LABS: Hematocrit (blood only) 35.1 % (37.0-47.0); Hemoglobin 11.4 g/dl (12.0-16.0); Mean Corpuscular Hemoglobin 31.2 pg (25.0-34.0); Mean Corpuscular Hgb Conc 32.5 g/dL (32.0-36.0); Mean Corpuscular Volume 96.2 fL (80.0-100.0); Mean Platelet Volume 9.5 fL (9.4-12.4); Platelet Count 207 K/uL (130-400); RDW Coefficient of Variation 14.4 % (11.5-14.5); RDW Standard Deviation 50.9 fL (36.4-46.3); Red Blood Count 3.65 M/uL (4.20-5.40)
[2023-02-11] MEDS: PANTOprazole 40 MG in SYRINGE 0 ML IV SCH ×2 (08:49→20:54)
[2023-02-11] MEDS: LACTATED RINGER'S 1,000 ML IV SCH ×2 (08:49→20:51)
[2023-02-11] MEDS: FLUTICASONE/VILANTEROL 200/25MCG 14 PUFFS/INHALER INH SCH (08:50)
[2023-02-11] MEDS: HEPARIN SOD 5,000 UNIT/0.5 ML VIAL SQ SCH ×2 (08:52→20:45)
[2023-02-11] MEDS: ONDANSETRON INJ 2 MG/ML 2 ML VIAL IV PRN (08:56)
[2023-02-11 08:57] LABS: Albumin Globulin Ratio 1.2 (0.9-2); Albumin Level 3.2 gm/dl (3.4-5.0); BUN Creatinine Ratio 12.9 (10-20); Bilirubin Direct 0.1 mg/dl (0-0.2); Bilirubin,Total 0.4 mg/dl (0.2-1.0); Calcium 8.6 mg/dl (8.6-10.3); Creatinine Clr Calc Pharmacy 53.9 ml/min; Est GFR (African American) 75.5 ml/min; Est GFR (Non-African American) 65.2 ml/min; Globulin 2.6 gm/dl (2.5-4.0); Total Protein 5.8 gm/dl (6.0-8.3)
[2023-02-11] MEDS ORDERED: [UNRECOGNIZED DRUG - OTHER] PO SCH (09:00)
[2023-02-11] MEDS ORDERED: PANTOprazole 40 MG TAB PO SCH (09:00)
[2023-02-11] MEDS: guaiFENesin 600 MG TABCR PO SCH ×2 (09:00→20:44)
[2023-02-11] MEDS: SPIRONOLACTONE 12.5 MG TAB PO SCH (09:00)
[2023-02-11] MEDS ORDERED: CALCIUM PO SCH (09:00)
[2023-02-11] MEDS: ASPIRIN 81 MG CHEW PO SCH (09:00)
[2023-02-11] MEDS ORDERED: VITAMIN K PO SCH (09:00)
[2023-02-11] MEDS: LOSARTAN POTASSIUM 50 MG TAB PO SCH (09:00)
[2023-02-11] MEDS: ADVANCED PROBIOTIC 1250 MG CAPSULE PO SCH (09:00)
[2023-02-11] MEDS: AZELASTINE HCL 0.1% NASAL 200 SPRAYS/27,400 MCG BTL SCH ×2 (13:00→20:50)
--- NOTE | 2023-02-11 13:52 | Hospitalist Progress Note ---
Date of Service February 11, 2023 Assessment & Plan (1) Abdominal pain: (2) Duodenitis: (3) Nausea: (4) Non-tuberculous mycobacterial pneumonia: (5) Hypertension: (6) Dyslipidemia: (7) GERD (gastroesophageal reflux disease): Plan 77 year old female that presents to [facility] for abdominal pain; admitting abdominal/pelvic CT suggestive of acute pancreatitis vs duodenitis. Pt has had cholecystectomy prior. Currently sees Dr. Galvez with ID for management of non- TB mycobacterial PNA. She is being managed for the following: Abdominal pain/pancreatitis versus duodenitis Presents with 10/10 epigastric abdominal pain Admitting abdominal/pelvis CT: 1. Mild inflammatory change surrounding the uncinate process of the pancreas consistent with acute pancreatitis. 2. Mild thickening at the third portion of the duodenum which is likely reactive to the suspected pancreatitis. A superimposed duodenitis could also have a similar appearance. Likely pancreatitis, no transaminitis/lipase elevation noted. Continue with IV fluids, clear liquid diet for today. Reports improvement in belly pain. GI evaluated, recommends outpatient endoscopic ultrasound in 6 to 8 weeks. ADA T, c/w PPI. appreciate recs. Stop Remeron on discharge which was recently started per patient. It is associated with pancreatitis less commonly. c/w iv panto for now. Non-TB mycobacterial PNA: Follows with Dr. Galvez, AV Completed Azithromycin course Has PICC line and is currently taking Amikacin, next dose is on Monday per patient. HTN: Takes Losartan and Metoprolol; continue HLD: Takes Pravastatin; continue GERD: Takes Protonix; will switch to IV per GI reccs Disposition: PCP: Dr. Perez Code:Full Code VTE Prophylaxis: Heparin SQ Admission and Anticipated Discharge Date Admission Date: February 10, 2023 Subjective Patient seen and examined at bedside as a follow-up of abdominal pain/pancreatitis versus duodenitis. Patient was lying in bed, on room air, NAD, reports no new acute event overnight . Patient reports some nausea, reports improvement in her abdominal pain. Patient denies any headache/fever/chills/sore throat/chest pain/palpitations/other review of symptoms. We will start patient on clear liquid diet and then advance to full liquid tomorrow. Physical Exam Physical Exam: Constitutional: WD/WN, vitals as above, NAD, pleasant, conversing easily Respiratory: normal respiratory effort, lungs clear to auscultation, no wheeze, rales, rhonchi. Normal insp/exp effort, no accessory muscle use Cardiovascular: RRR, no murmur, no edema Vessels: no JVD or carotid bruit Chest: normal inspection of chest Abdomen: Soft, nontender but reports mild discomfort. Bowel sound present. Musculoskeletal: no cyanosis or clubbing, extremities motor strength 5/5 Skin: no rashes, warm and dry normal turgor Neurologic: PERRL, EOMI, accommodation nl, no face palsy, no dysarthria CN's II- XI intact bilaterally and moves all extremities Psychiatric: A+Ox3, euthymic affect Lymphatic: no cervical or axillary lymphadenopathy : deferred Results & Data Results & Data Vital Signs (Past 12 Hours) Vital Signs Temp Pulse Pulse Resp BP Pulse Ox O2 Del Method 02/11/23 10:59 36.6 C 90 18 131/81 93 Room Air 02/11/23 10:29 Room Air 02/11/23 07:35 36.7 C 90 18 112/71 94 Room Air 02/11/23 07:49 95 H 02/11/23 03:45 Room Air 02/11/23 03:09 37 C 91 H 18 113/71 92 Room Air (1) Abdominal pain Abdominal location: epigastric Qualified Code(s): R10.13 - Epigastric pain
[2023-02-11] MEDS: METOPROLOL SUCC 25MG EXT REL TAB PO SCH ×2 (17:40→20:52)
[2023-02-11] MEDS: SODIUM CHLORIDE 0.65% NA SOLN 45 ML (OCEAN) SCH ×2 (17:42→20:48)
[2023-02-11] MEDS: CEROVITE ADV FORMULA TAB PO SCH (18:00)
[2023-02-11] MEDS: MELATONIN 3 MG TAB PO SCH (20:50)
[2023-02-11] MEDS: MONTELUKAST SODIUM 10 MG TABLET PO SCH (20:52)
[2023-02-11] MEDS: PRAVASTATIN SOD 20 MG TAB PO SCH (20:53)
[2023-02-11] MEDS: POLYETHYLENE (MIRALAX) 17 GM PACK PO SCH (20:55)
[2023-02-12] MEDS: PANTOprazole 40 MG in SYRINGE 0 ML IV SCH (07:56)
[2023-02-12] MEDS: LOSARTAN POTASSIUM 50 MG TAB PO SCH (07:57)
[2023-02-12] MEDS: guaiFENesin 600 MG TABCR PO SCH ×2 (07:57→20:16)
[2023-02-12] MEDS: CEROVITE ADV FORMULA TAB PO SCH (08:00)
[2023-02-12] MEDS: HEPARIN SOD 5,000 UNIT/0.5 ML VIAL SQ SCH ×2 (08:01→20:17)
[2023-02-12] MEDS: ADVANCED PROBIOTIC 1250 MG CAPSULE PO SCH (08:01)
[2023-02-12] MEDS: SPIRONOLACTONE 12.5 MG TAB PO SCH (08:01)
[2023-02-12] MEDS: ASPIRIN 81 MG CHEW PO SCH (08:02)
[2023-02-12] MEDS: METOPROLOL SUCC 25MG EXT REL TAB PO SCH ×2 (08:03→20:16)
[2023-02-12] MEDS: FLUTICASONE/VILANTEROL 200/25MCG 14 PUFFS/INHALER INH SCH ×2 (08:03→20:22)
[2023-02-12] MEDS: SODIUM CHLORIDE 0.65% NA SOLN 45 ML (OCEAN) SCH ×2 (08:04→20:17)
[2023-02-12] MEDS: AZELASTINE HCL 0.1% NASAL 200 SPRAYS/27,400 MCG BTL SCH ×2 (08:04→20:17)
[2023-02-12 08:19] LABS: Hematocrit (blood only) 36.6 % (37.0-47.0); Hemoglobin 12.2 g/dl (12.0-16.0); Mean Corpuscular Hemoglobin 31.4 pg (25.0-34.0); Mean Corpuscular Hgb Conc 33.3 g/dL (32.0-36.0); Mean Corpuscular Volume 94.3 fL (80.0-100.0); Mean Platelet Volume 9.6 fL (9.4-12.4); Platelet Count 234 K/uL (130-400); RDW Coefficient of Variation 14.1 % (11.5-14.5); RDW Standard Deviation 48.5 fL (36.4-46.3); Red Blood Count 3.88 M/uL (4.20-5.40); White Blood Count 4.27 K/ul (4.8-10.8)
[2023-02-12 08:39] LABS: BUN Creatinine Ratio 7.6 (10-20); Calcium 9.1 mg/dl (8.6-10.3); Creatinine Clr Calc Pharmacy 49.9 ml/min; Est GFR (African American) 68.6 ml/min; Est GFR (Non-African American) 59.2 ml/min; Phosphorus 3.5 mg/dl (2.5-4.9)
[2023-02-12] MEDS ORDERED: FUROSEMIDE 40 MG TAB PO SCH (10:30)
--- NOTE | 2023-02-12 16:18 | Hospitalist Progress Note ---
Date of Service February 12, 2023 Assessment & Plan (1) Abdominal pain: (2) Duodenitis: (3) Nausea: (4) Non-tuberculous mycobacterial pneumonia: (5) Hypertension: (6) Dyslipidemia: (7) GERD (gastroesophageal reflux disease): Plan 77 year old female that presents to [facility] for abdominal pain; admitting abdominal/pelvic CT suggestive of acute pancreatitis vs duodenitis. Pt has had cholecystectomy prior. Currently sees Dr. Galvez with ID for management of non- TB mycobacterial PNA. She is being managed for the following: Abdominal pain/pancreatitis versus duodenitis Presents with 10/10 epigastric abdominal pain Admitting abdominal/pelvis CT: 1. Mild inflammatory change surrounding the uncinate process of the pancreas consistent with acute pancreatitis. 2. Mild thickening at the third portion of the duodenum which is likely reactive to the suspected pancreatitis. A superimposed duodenitis could also have a similar appearance. Likely pancreatitis, no transaminitis/lipase elevation noted. DC IV fluids, full liquid diet today then low-fat diet from tomorrow. Reports improvement in belly pain, afebrile. GI evaluated, recommends outpatient endoscopic ultrasound in 6 to 8 weeks. c/w PPI. appreciate recs. Stop Remeron on discharge which was recently started per patient. It is associated with pancreatitis less commonly. Oral pantoprazole for twice daily for 1 month then daily. Non-TB mycobacterial PNA: Follows with Dr. Galvez, ID Completed Azithromycin course Has PICC line and is currently taking Amikacin, next dose is on Monday per patient. HTN: Takes Losartan and Metoprolol; continue HLD: Takes Pravastatin; continue GERD: Takes Protonix; will switch to IV per GI reccs Disposition: PCP: Dr. Perez Code:Full Code VTE Prophylaxis: Heparin SQ Dispo: likely delicia. Admission and Anticipated Discharge Date Admission Date: February 10, 2023 Subjective Patient seen and examined at bedside as a follow-up of abdominal pain/pancreatitis versus duodenitis. Patient was lying in bed, on room air, NAD, reports no new acute event overnight. Patient denies nausea, reports no abdominal pain, would like to advance diet, full liquid diet today. Patient denies any headache/fever/chills/sore throat/chest pain/palpitations/other review of symptoms. Physical Exam Physical Exam: Constitutional: WD/WN, vitals as above, NAD, pleasant, conversing easily Respiratory: normal respiratory effort, lungs clear to auscultation, no wheeze, rales, rhonchi. Normal insp/exp effort, no accessory muscle use Cardiovascular: RRR, no murmur, no edema Vessels: no JVD or carotid bruit Chest: normal inspection of chest Abdomen: Soft, nontender . Bowel sound present. Musculoskeletal: no cyanosis or clubbing, extremities motor strength 5/5 Skin: no rashes, warm and dry normal turgor Neurologic: PERRL, EOMI, accommodation nl, no face palsy, no dysarthria CN's II- XI intact bilaterally and moves all extremities Psychiatric: A+Ox3, euthymic affect Lymphatic: no cervical or axillary lymphadenopathy : deferred Results & Data Results & Data Vital Signs (Past 12 Hours) Vital Signs Temp Pulse Pulse Resp BP Pulse Ox O2 Del Method 02/12/23 15:08 36.7 C 102 H 18 151/63 H 92 Room Air 02/12/23 11:56 36.8 C 88 18 142/77 H 93 Room Air 02/12/23 07:34 88 02/12/23 07:31 36.7 C 91 H 18 130/82 92 Room Air (1) Abdominal pain Abdominal location: epigastric Qualified Code(s): R10.13 - Epigastric pain
[2023-02-12] MEDS: PRAVASTATIN SOD 20 MG TAB PO SCH (20:15)
[2023-02-12] MEDS: MELATONIN 3 MG TAB PO SCH (20:15)
[2023-02-12] MEDS: MONTELUKAST SODIUM 10 MG TABLET PO SCH (20:15)
[2023-02-12] MEDS: POLYETHYLENE (MIRALAX) 17 GM PACK PO SCH (20:18)
[2023-02-12] MEDS ORDERED: PANTOprazole 40 MG TAB PO SCH (21:00)
[2023-02-13] MEDS: LOSARTAN POTASSIUM 50 MG TAB PO SCH (07:47)
--- NOTE | 2023-02-13 12:12 | Discharge Summary ---
Date of Service February 13, 2023 Admission HPI Per Admitting Provider Ms. Forman is a 77-year-old female that presented to the [facility] ED today with 10 out of 10 epigastric pain that started yesterday around 3 PM. Patient was recently completed course of azithromycin and is currently taking mucus and IV amikacin and is on dose 6 of 7. Patient reports no other new medications over the past few months. Abdominal pelvis CT indicated mild inflammation with acute pancreatitis. No n ecrosis noted on CT patient has had cholecystectomy in the past. No transaminitis noted on labs, no leukocytosis, lipase 17. BISAP score 1. Patient has had colonoscopy and EGD in the past; Most recently EGD 2021 negative with specimen collection. 1 benign polyp noted. Additional past medical history includes on non-TB mycobacterial pneumonia, HTN, history of Lyme's disease, HLD, depression and asthma. Patient denies fever, chills, headache, dizziness, cough, nausea, vomiting, diarrhea, appetite changes, recent falls or trauma. Patient denies alcohol, tobacco or recreational drug use. Patient does report family history of GI malignancy; dad currently with colon cancer Patient will be admitted for further evaluation and management. Please see A/P for further details. Admission Exam Per Admitting Provider Constitutional: WD/WN, vitals as above, NAD, sitting up in bed, pleasant, conversing easily Respiratory: normal respiratory effort, lungs clear to auscultation, no wheeze, rales, rhonchi. Normal insp/exp effort, no accessory muscle use Cardiovascular: RRR, no murmur, no edema Vessels: no JVD or carotid bruit Chest: normal inspection of chest Abdomen: Soft, nontender. Bowel sound present. Musculoskeletal: no cyanosis or clubbing, extremities motor strength 5/5 Skin: no rashes, warm and dry normal turgor Neurologic: PERRL, EOMI, accommodation nl, no face palsy, no dysarthria CN's II- XI intact bilaterally and moves all extremities Psychiatric: A+Ox3, euthymic affect Lymphatic: no cervical or axillary lymphadenopathy : deferred Principal Diagnosis Abdominal pain/pancreatitis versus duodenitis Non-TB mycobacterial pneumonia under treatment with ID as an outpatient. Discharge Exam Constitutional: WD/WN, vitals as above, NAD, pleasant, conversing easily Respiratory: normal respiratory effort, lungs clear to auscultation, no wheeze, rales, rhonchi. Normal insp/exp effort, no accessory muscle use Cardiovascular: RRR, no murmur, no edema Vessels: no JVD or carotid bruit Chest: normal inspection of chest Abdomen: Soft, nontender . Bowel sound present. Musculoskeletal: no cyanosis or clubbing, extremities motor strength 5/5 Skin: no rashes, warm and dry normal turgor Neurologic: PERRL, EOMI, accommodation nl, no face palsy, no dysarthria CN's II- XI intact bilaterally and moves all extremities Psychiatric: A+Ox3, euthymic affect Lymphatic: no cervical or axillary lymphadenopathy : deferred Discharge Data Allergies Allergy/AdvReac Type Severity Reaction Status Date / Time Quinolones Allergy Mild RASH Verified 02/13/23 08:42 epinephrine AdvReac Intermediate Jittery,disoriented,nausea Verified 02/13/23 08:42 and vomiting amoxicillin AdvReac Mild Diarrhea Verified 02/13/23 08:42 morphine AdvReac Mild NAUSEA/VOMI Verified 02/13/23 08:42 TING Consultations 02/10/23 11:22 ED Decision to Admit Stat 02/10/23 11:49 Consult Gastroenterology Routine Ordered Studies 02/10/23 08:44 CT abd pelvis IV con only Stat Hospital Course (1) Abdominal pain: (2) Duodenitis: (3) Nausea: (4) Non-tuberculous mycobacterial pneumonia: (5) Hypertension: (6) Dyslipidemia: (7) GERD (gastroesophageal reflux disease): Plan 77 year old female that presents to [facility] for abdominal pain; admitting abdominal/pelvic CT suggestive of acute pancreatitis vs duodenitis. Pt has had cholecystectomy prior. Currently sees Dr. Galvez with ID for management of non- TB mycobacterial PNA. She was managed for the following: Abdominal pain/pancreatitis versus duodenitis Presents with 10/10 epigastric abdominal pain Admitting abdominal/pelvis CT: 1. Mild inflammatory change surrounding the [place]i [place] process of the pancreas consistent with acute pancreatitis. 2. Mild thickening at the third portion of the duodenum which is likely reactive to the suspected pancreatitis. A superimposed duodenitis could also have a similar appearance. Likely pancreatitis, no transaminitis/lipase elevation noted. DC IV fluids, full liquid diet today then low-fat diet from tomorrow. Reports improvement in belly pain, afebrile. GI evaluated, recommends outpatient endoscopic ultrasound in 6 to 8 weeks. c/w PPI. appreciate recs. Stop Remeron on discharge which was recently started per patient. It is associated with pancreatitis less commonly. Oral pantoprazole for twice daily for 1 month then daily. Non-TB mycobacterial PNA: Follows with Dr. Galvez, ID Completed Azithromycin course Has PICC line and is currently taking Amikacin, next dose is on Monday per patient. HTN: Takes Losartan and Metoprolol; continue HLD: Takes Pravastatin; continue GERD: Takes Protonix; will switch to IV per GI reccs Disposition: PCP: Dr. Perez Code:Full Code VTE Prophylaxis: Heparin SQ Dispo: likely delicia. Patient being discharged home with following instruction at the point of discharge: Follow-up with your primary care physician within 1 week time and likely you will need labs CBC/CMP/magnesium/phosphorus. Your Remeron has been stopped on discharge as it is associated with pancreatitis though less commonly. GI doctor evaluated you, recommend follow-up with GI in 2 months time for evaluation for outpatient endoscopic ultrasound. Continue with pantoprazole 40 mg twice a day for 1 month and then once daily. Follow-up with infectious disease doctor for your ongoing treatment for Non-TB mycobacterial pneumonia. Take your medications as prescribed. Home Health Attestation I certify that this patient is under my care and that I, or a physicians electrician's assistant working with me, had a face to-face encounter that meets the home health [id number] encounter requirements with this patient. The encounter with the patient was in whole, or in part, for the following medical condition, which is the primary reason for home health care (list medical condition): I certify that, based on my findings, the following services are medically necessary home health services: My clinical findings support the need for the above services because: Further, I certify that my clinical findings support that this patient is homebound (i.e. absences from home require considerable and taxing effort and are for medical reasons or mandaeism services or infrequently or of short duration when for other reasons) because: Certification for Home Health Services: Based on the above findings, I certify that this patient is confined to the home and needs intermittent chcf care, physical therapy and/or speech therapy or continues to need occupational therapy. The patient is under my care, and I have initiated the establishment of the plan of care. This patient will be followed by a physician who will periodically review the plan of care. Total Time Total Time Spent Total Time Spent (In Minutes): 45 Discharge Plan Discharge Items Patient Disposition: Home - Self-Care Reason For Visit: ABDOMINAL PAIN Discharge Diagnosis: Abdominal pain/pancreatitis versus duodenitis Non-TB mycobacterial pneumonia under treatment with ID as an outpatient. Activity: Resume your previous activity Non-emergency contact: Primary Care Provider Call non-emergency contact if: you have any medication questions, your symptoms worsen and your temperature is above 101 Follow-up/Referrals: Dayron Perez, [Primary Care Provider] - (Date & Time 02/16/2023 5:20 PM Provider Cee Stanford PA-C Department [facility] ) Diet: Low Fat Diet Texture: Easy to Chew Addtl Attending Provider Instructions: Follow-up with your primary care physician within 1 week time and likely you will need labs CBC/CMP/magnesium/phosphorus. Your Remeron has been stopped on discharge as it is associated with pancreatitis though less commonly. GI doctor evaluated you, recommend follow-up with GI in 2 months time for evaluation for outpatient endoscopic ultrasound. Continue with pantoprazole 40 mg twice a day for 1 month and then once daily. Follow-up with infectious disease doctor for your ongoing treatment for Non-TB mycobacterial pneumonia. Take your medications as prescribed. Pending Studies at Discharge: Yes Stand-Alone Forms: My [facility], Smoking Cessation Medications and DC Order Prescriptions: Continued losartan 50 mg Tablet 50 mg PO QAM fluticasone propion-salmeterol [Advair Diskus] 250-50 mcg/dose Blister With Device 1 inh INHALATION Q12H acetaminophen [Tylenol Extra Strength] 500 mg Tablet 1,000 mg PO HS montelukast 10 mg Tablet 10 mg PO HS pravastatin 20 mg Tablet 20 mg PO HS clobetasol 0.05 % Ointment 1 applic TOPICAL [id number] PRN (Reason: Skin Irritation) Rx Instructions: Apply as directed to affected area(s) albuterol sulfate [ProAir HFA] 90 mcg/actuation Hfa Aerosol Inhaler 2 puff INHALATION Q4H PRN (Reason: Cough or Wheezing) Centrum Silver 0.4-300-250 mg-mcg-mcg Tablet 1 tab PO QAM cholecalciferol (vitamin D3) [Vitamin D3] 1,000 unit Tablet 1,000 unit PO QAM melatonin 3 mg Tablet 6 mg PO HS Rx Instructions: TAKE THIS MEDICATION ONE HOUR PRIOR TO BEDTIME aspirin 81 mg Tablet,Chewable 81 mg PO QAM [place] Nasal 0.65 % Aerosol,[place] 1 spray INTRANASAL BID polyethylene glycol 3350 [Miralax] 17 gram Powder In Packet 17 g PO QPM metoprolol succinate 25 mg Tablet Extended Release 24 Hr 25 mg PO BID calcium-vitamin D3-vitamin K 500-100-40 mg-unit-mcg Tablet,Chewable 1 tab PO DAILY Align 4 mg Capsule 4 mg PO QAM spironolactone 25 mg Tablet 12.5 mg PO DAILY furosemide 40 mg Tablet 40 mg PO DAILY Rx Instructions: take 1 additional tablet if needed for increased swelling guaifenesin 600 mg Tablet Extended Release 12hr 600 mg PO BID Changed pantoprazole 20 mg Tablet,Delayed Release (Dr/Ec) 40 mg PO BID Qty: 60 0RF Discontinued mirtazapine 15 mg Tablet 15 mg PO DAILY Discharge Orders: Discharge Order (Routine); Ordered 02/13/23 Ordered By: Maira Schofield Admission Data Admit Date/Time: 02/10/23 11:49 Attending Provider: Maira Schofield Admit Provider: Raad Dominguez Primary Care Provider: Dayron Perez Other Providers: Raad Dominguez ; Susanna Rosen Other Interventions: Discharge Summary Assessment (RN) Last Done: 02/13/23 07:34
== END 2023-02-13 07:55 | disposition home or self-care (01) | DRG 438 ==
LOC: ED 08:05 → SUATTDRO 11:49 → EDINP 11:49 → 2N 14:04